=== PATIENT | female | born 1950 | race Caucasian/White ===

== ENCOUNTER → 2021-02-26 | Outpatient (CLI) | payer MEDICARE, MEDICAID ==
[~2021-02-26] MED LIST: CARB1TAB22 PO; CHLO25TA10 PO; FERR-36 PO; GABA600T7 PO; HYDR-2765 PO; LISI20TA18 PO; MULT-55 PO; OMEP20TA8 PO
[2021-02-26 08:45] LABS: BASO # 0.1 x10^3/uL (0.0-0.2); BASO % 1 % (0-3); EOS # 0.2 x10^3/uL (0.0-0.7); EOS % 4 % (0-3); HEMATOCRIT 41.9 % (36.0-47.0); HEMOGLOBIN 14.1 g/dL (12.0-15.5); LYMPH # 1.7 x10^3/uL (1.0-4.8); LYMPH % 28 % (24-48); MEAN CORPUSCULAR HEMOGLOBIN 32 pg (25-35); MEAN CORPUSCULAR HGB CONC 34 g/dL (31-37); MEAN CORPUSCULAR VOLUME 95 fL (79-100); MONO # 0.7 x10^3/uL (0.0-1.1); MONO % 11 % (0-9); NEUT # 3.2 x10^3/uL (1.8-7.7); NEUT % 56 % (31-73); PLATELET COUNT 122 x10^3/uL (140-400); RED CELL DISTRIBUTION WIDTH 11.9 % (11.5-14.5); WHITE BLOOD COUNT 5.8 x10^3/uL (4.0-11.0)
[2021-02-26 08:54] LABS: PROTHROMBIN TIME PATIENT 13.6 SEC (11.7-14.0)
[2021-02-26 08:55] LABS: ALBUMIN 3.4 g/dL (3.4-5.0); CALCIUM 8.7 mg/dL (8.5-10.1); CREATININE 1.7 mg/dL (0.6-1.0); GFR 29.6
--- NOTE | 2021-02-26 11:18 | EKG ---
[facility] [address] [place] [address] Test Date: 2021-02-26 Test Time: 11:15:32 Pat Name: CHELY QUINONES Department: Room: Gender: F Foot Tender: JMG : 1950 Requested By: YOLY FRANCO Order Number: [id number] Reading MD: Natanael Bean MD Measurements Intervals [place] Rate: 52 P: 51 ME: 202 QRS: 39 QRSD: 78 T: 46 QT: 456 QTc: 426 Interpretive Statements SINUS RHYTHM Electronically Signed On 02-28-2021 11:46:53 CDT by Natanael Bean MD
[2021-02-27 01:23] LABS: HEMOGLOBIN A1C 5.6 % (4.8-5.6)
--- NOTE | 2021-02-27 04:01 | RAD ---
XR CHEST 2V History: Reason: joint prehab patient-hx hypertension-preop eval / Spl. Instructions: / History: Comparison: None. Findings: The cardiomediastinal silhouette is normal. Pulmonary vasculature is normal. The lungs are clear. No pleural effusion or pneumothorax is seen. There is no acute bone abnormality. IMPRESSION: No acute cardiopulmonary process. Electronically signed by: Michael Baxter MD (02/27/2021 3:59 AM) [facility]
== END ==
LOC: SURGPAT 15:10
PROVIDERS: ATTEND Orthopaedic Surgery
DX: Z01.818 Encounter for other preprocedural examination (principal); M17.12 Unilateral primary osteoarthritis, left knee; I10 Essential (primary) hypertension; Z96.652 Presence of left artificial knee joint
CPT/HCPCS: 36415; 71046; 80048; 82040; 82306; 83036; 85025; 85610; 85651; 85730; 87641; 93005

== ENCOUNTER → 2021-03-15 | Outpatient (CLI) | payer MEDICARE, MEDICAID | LOC: LAB 09:46 | PROVIDERS: ATTEND Orthopaedic Surgery | DX: Z01.812 Encounter for preprocedural laboratory examination (principal); Z20.822 Contact with and (suspected) exposure to COVID-19; M17.12 Unilateral primary osteoarthritis, left knee | CPT/HCPCS: U0003; U0005 ==

== ENCOUNTER 2021-03-19 06:08 | Observation (INO) | payer MEDICARE, MEDICAID ==
--- NOTE | 2021-03-18 11:21 | PDOC1 ---
History and Physical Date of Admission Date of Admission 03/19/2021 Identification/Chief Complaint Chief Complaint Left knee osteoarthritis pain Source Source: Chart review, Patient History of Present Illness History of Present Illness Ms. Quinones is a 69-year-old female with left knee osteoarthritis pain and also pain in the right knee. Patient has pain in both knees that has progressively worsened over the last year. She describes progressive knee pain for years that has especially progressed. She was previously in physical therapy where she progressed to use of a cane, although she has more recently declined and is back to ambulating with a walker. Patient locates "grinding and excruciating pain" in the knee. She has a bed sore on her buttock that is being treated with Neosporin. Denies any known metal allergy. Denies smoking although her roommate does smoke outside. She describes painful crepitus in the left knee. She also mentions some numbness and swelling in her legs (right more than left). She uses a walker to help with ambulation due to pain and instability. She has fallen several times as a result of her antalgic/unsteady gait. She has been to physical therapy. She previously received corticosteroid injections in her knees with no relief, most recently in summer 2018. She's never received visco supplementation injections. Her knee pain keeps her from driving. Her knee pain also limits her mobility, and she has gained some weight as a result. Patient does note a history of Parkinson's.. She is a former smoker (quit in 2009). Patient lives with her sister and [id number]. She had a cholecystectomy last year that she recovered well from. Past Medical History Past Medical History Parkinsons. High blood pressure. Osteoporosis. Carpal tunnel syndrome. Cardiovascular: HTN CENTRAL NERVOUS SYSTEM: Carpal Tunnel Syndrome Endocrine: Osteoporosis Past Surgical History Past Surgical History gall bladder 2018 rectal surgery x2 2009 Past Surgical History: Cholecystectomy Social History Smoke: Quit ALCOHOL: none Current Medications Current Medications Current Medications Fentanyl Citrate (Fentanyl 2ml Vial) 25 mcg PRN Q5MIN PRN IVP MILD PAIN 1-3; Start 03/19/21 at 06:00; Stop 03/19/21 at 20:00 Fentanyl Citrate (Fentanyl 2ml Vial) 50 mcg PRN Q5MIN PRN IVP MODERATE PAIN 4- 6; Start 03/19/21 at 06:00; Stop 03/19/21 at 20:00 Morphine Sulfate (Morphine Sulfate) 1 mg PRN Q10MIN PRN IVP SEVERE PAIN 7-10; Start 03/19/21 at 06:00; Stop 03/19/21 at 20:00; Status Cancel Ringer's Solution 1,000 ml @ 30 mls/hr Q24H IV ; Start 03/19/21 at 06:00; Stop 03/19/21 at 17:59 Hydromorphone HCl (Dilaudid) 0.5 mg PRN Q10MIN PRN IVP SEVERE PAIN 7-10, 2nd CHOICE; Start 03/19/21 at 06:00; Stop 03/19/21 at 20:00 Prochlorperazine Edisylate (Compazine) 5 mg PACU PRN PRN IVP NAUSEA, MRX1; Start 03/19/21 at 06:00; Stop 03/19/21 at 20:00 Tranexamic Acid 50 ml @ 50 mls/hr 1X PERIOP ONCE INJ ; Start 03/19/21 at 06:00; Stop 03/19/21 at 06:59 Ketorolac Tromethamine 30 mg/Ropivacaine 60 ml/Epinephrine HCl 0.5 mg/Sodium Chloride 99.5 ml @ 99.5 mls/hr 1X ONCE INJ ; Start 03/19/21 at 06:00; Stop 03/19/21 at 06:59 Cefazolin Sodium/ Dextrose 50 ml @ 100 mls/hr 1X ONCE IV ; Start 03/19/21 at 06:00; Stop 03/19/21 at 06:29 Active Scripts Active Reported Hair, Skin & Nails (Multivitamin With Minerals) 1 Each Tablet 1 Each PO DAILY Omeprazole 20 Mg Tablet.dr 20 Mg PO DAILY Lisinopril 20 Mg Tablet 20 Mg PO DAILY Chlorthalidone (Chlorthalidone) 25 Mg Tablet 12.5 Mg PO DAILY Carbidopa-Levodopa 25-100 Tab (Carbidopa/Levodopa) 1 Each Tablet 1 Each PO TID Gabapentin 600 Mg Tablet 100 Mg PO DAILY Hydrocodone-Apap 7.5-325 (Hydrocodone Bit/Acetaminophen) 1 Tab Tablet 1 Tab PO PRN Q6HRS PRN Iron (Ferrous Sulfate) 325 Mg Tablet 325 Mg PO DAILY Allergies Allergies: Coded Allergies: morphine (Verified Adverse Reaction, Unknown, 03/19/21) DISORIENTATION oxycodone (Verified Adverse Reaction, Unknown, 03/19/21) DISORIENTATION ROS Review of System OPHTHALMOLOGY: Blurred vision none. Double vision admits. Change in vision none. ENT: Hearing loss admits (receiving hearing aids soon). Change in voice denies. Rhinorrhea none. CARDIOLOGY: Palpitations none. Shortness of breath denies. Chest pain denies. CONSTITUTIONAL: Fever denies. Chills denies. Weight gain denies. Weakness none. weight loss denies. Fatigue none. GASTROENTEROLOGY: Diarrhea admits. Vomiting none. Dysphagia none. UROLOGY: Voiding normally no. Hematuria none. MUSCULOSKELETAL: Chronic back or neck pain denies. Swelling of the feet, hands, ankles and /or legs denies. Joint pain admits. Tingling/numbness no. DERMATOLOGY: Rash denies. Lumps none. NEUROLOGY: Dizziness/lightheadedness admits. Double vision, temporary blindness denies. Tingling/numbness none. PSYCHOLOGY: Change in mood or personality denies. Memory loss none. ENDOCRINOLOGY: Obesity denies. Fatigue none. Weight loss none. HEMATOLOGY/LYMPH: Hepatitis denies. Enlarged lymph nodes denies. Physical Exam General: Alert, Cooperative HEENT: Atraumatic Lungs: Normal air movement Heart: RRR Abdomen: Soft Extremities: Other (The LEFT knee shows an antalgic gait using a walker. There is varus alignment. No masses. No detectable effusion. Tenderness on the joint lines. Palpable osteophytes. Range of motion is 2-110 degrees. There is crepitus with range of motion, and pain at the extremes of motion. The knee is stable to varus and valgus stress without subluxation or laxity. Muscle strength is slightly weak for the quadriceps 4/5 which may be due to pain or avoidance, and does not seem neurogenic, and the muscle tone and bulk is slightly decreased. The hamstring strength is 5/5. The skin is normal with no scars, rashes, lesions or ulcers. Light touch sensation is intact. No edema and no varicosities. Dorsalis pedis pulse is intact and capillary refill is normal.) Skin: No breakdown Neuro: Normal speech, Sensation intact Images Images Report reviewed and images independently reviewed. The left knee has severe osteoarthritis with narrowing, [id number] contact medially, sclerosis, osteophyte formation in all 3 compartments, varus malalignment and possible deformity of bone contour, Kellgren-Jose Angel grade 3 osteoarthritis. PATIENT: CHELY QUINONES ACCOUNT: [id number] : 1950 LOCATION: [facility] AGE: 70 SEX: F EXAM STATUS: REG CLI ORD. PHYSICIAN: CHAKA DASILVA Jr. REASON: LEFT KNEE PAIN PROCEDURE: KNEE STANDING BILAT AP Examination: 1. AP bilateral standing knees 2. Left knee 2 views INDICATION: Left knee pain COMPARISON: None FINDINGS: Bilateral standing AP knees show mild varus deformity to the left knee and lateral subluxation of the tibia relative to the distal femur. It shows also marked medial left knee joint space narrowing and osteophytic spurring of the lateral compartment. The right knee also shows marked surface irregularity on the medial femoral condyle and lateral tibial plateau osteophytic spurring. There is mild joint space narrowing, less profound than on the left knee. Soft tissues are unremarkable. The sunrise and lateral views of the left knee show marked patellofemoral joint space narrowing, near driz-co-puxj contact between the medial femoral condyle and the medial tibial plateau, and posterior osteophytes on the medial and lateral femoral condyles. No joint effusion. No definite loose body. Soft tissues unremarkable otherwise. IMPRESSION: Left greater than right bilateral multicompartment degenerative changes with varus deformity at the left knee Electronically signed by: Jeanette Rodriguez MD (02/01/2021 5:04 PM) [id number] VTE Prophylaxis Ordered VTE Prophylaxis Devices: Yes VTE Pharmacological Prophylaxi: Yes Assessment/Plan Assessment/Plan She has osteoarthritis of her left knee. We reviewed her previous x-rays together and discussed the natural history of the condition as well as the risks, benefits, and alternatives to treatment. Given her failure of nonoperative measures with continued severe pain and loss of function, my recommendation is surgery. Plan for left total knee arthroplasty with CORI robotic assistance. We discussed the potential risks of infection, neurovascular injury, fracture, bleeding, blood clots, malalignment, need for revision surgery, or other potential surgical or anesthetic complications. I recommended the robotic CORI instrumentation and we discussed my reasoning. We also discussed postoperative treatment and expectations including dental antibiotic prophylaxis and residual numbness over the knee. All of her questions were answered and she desires to proceed with total knee replacement. She is here today for elective left total knee arthroplasty with robotic assist. The patient was examined this morning. The knee history is unchanged. She does have a rash in the groin which appears to be tinea corporis. Justifications for Admission Other Justification YOLY FRANCO MD Mar 18, 2021 11:21
[2021-03-19] VITALS (8 sets, daily range): BP systolic 96–112; BP diastolic 58–67
[~2021-03-19] VITALS: Ht 162.6 cm; Wt 98.5 kg
[~2021-03-19 06:08] MED LIST changes: +IV RINGERS,LACTATED 1000ML 1,000 ML IV SCH; +KETOROLAC 30MG VIAL 30 MG, ROPIVacaine 0.5% PF 60 ML, EPINEPHrine 0.5 MG in IV NORMAL S... INJ ONE; +MORPHINE SULFATE 2 MG/ML VIAL. IVP PRN; +PROCHLORPERAZINE 10 MG/2 ML VIAL. IVP PRN; +TRANEXAMIC ACID in NS IVPB 50 ML INJ ONE; +fentaNYL PF VIAL 100 MCG/2 ML VIAL IVP PRN
[2021-03-19] MEDS ORDERED: ACETAMINOPHEN 500 MG TABLET PO ONE (06:45)
[2021-03-19] MEDS ORDERED: TRANEXAMIC ACID in NS IVPB 50 ML ONE ×2 (07:00→07:01)
[2021-03-19] MEDS ORDERED: VANCOMYCIN 1 GM VIAL. ONE ×2 (07:01→07:02)
[2021-03-19] MEDS ORDERED: LIDOCAINE 2% PF 5 ML VIAL. ONE (07:05)
[2021-03-19] MEDS ORDERED: ONDANSETRON PF 4 MG/2 ML VIAL. ONE (07:05)
[2021-03-19] MEDS ORDERED: DEXAMETHASONE SOD PHOS 4 MG/ML VIAL ONE (07:05)
[2021-03-19] MEDS ORDERED: fentaNYL PF VIAL 250 MCG/5 ML VIAL ONE (07:05)
[2021-03-19] MEDS ORDERED: PROPOFOL 10 MG/ML (20ML) VIAL. IV ONE (07:05)
[2021-03-19] MEDS ORDERED: TOBRAMYCIN POWDER 1.2 GM VIAL. TP ONE (07:45)
--- NOTE | 2021-03-19 10:28 | PDOC4 ---
Operative Note Operative Note Date of Procedure: March 19, 2021 Pre-Op Diagnosis: Unilateral primary osteoarthritis, left knee. M17.12 Post-Op Diagnosis: same Procedure: left total knee arthroplasty with patella resurfacing, robotic assisted, CPT 63016 Surgeon: Yoly Hunter MD Stone Lathe Operator: CAROLIN Rae Anesthesia: General EBL: 200 mL Specimens Obtained: left knee bone and soft tissue Complications: none Drains: Hemovac Tourniquet time: 68 Minutes Tourniquet Pressure: 300 mm Hg Indications for Procedure: Knee arthritis pain, affecting quality of life, unrelieved by nonoperative management Findings: Severe osteoarthritis with bone on bone contact in all three compartments Implants: Gaytan & Nephew Journey II Total Knee System, Size 4 left bicruciate stabilized Journey II BCS cobalt chrome femoral component, size 3 left Journey nonporous tibial baseplate, size 3-4 10 mm left Journey II BCS XLPE articular insert, 32 mm oval Giuliana II resurfacing patellar component Procedure in Detail: The patient was identified in the preoperative holding area, and the correct left lower extremity was marked by me. The patient was taken to the operating room where the patient was anesthetized by the Department of Anesthesia. Preoperative antibiotics were given intravenously. Tranexamic acid 1 g was given intravenously for intraoperative hemostasis. A "time-out" procedure was performed. The patient was positioned supine on the operative table with a tourniquet on the upper left thigh. A left hip bump and heel bump were attached to the operating table for later intraoperative positioning. The left lower limb was thoroughly scrubbed, then sterile Chloraprep solution was applied, and the limb was draped in sterile fashion. The operating team wore exhaust ventilated hoods with HomeRun Personal Protection Toga Zippered Peel-Away protection system. An impervious stockinet and an adhesive drape were used such that the skin was entirely covered. The limb was exsanguinated with an Esmarch bandage, and the tourniquet was inflated. A midline skin incision was made with a scalpel using the patella and tibial tubercle as landmarks. Electrocautery was used for hemostasis. My hearing aid assistant used rake retractors and a laparotomy sponge. A medial parapatellar arthrotomy incision was used with extension into the distal quadriceps tendon. The patella was retracted laterally and Hohmann retractors were now used by my hearing aid assistant. Excess synovium, the menisci, and the cruciate ligaments were resected sharply. A periarticular multimodal ropivacaine anesthetic injection was used in the suprapatellar pouch and distal quadriceps muscle. The patella was everted and exposed. The patella thickness was measured with a caliper, and then cut freehand with a saw, using caliper measurements to assess the resection. The lateral retinaculum was partially released from the lateral patella using electrocautery. Rongeurs were used to make sure there were no remaining exposed patellar osteophytes medially or laterally. The patella was sized, and then drilled for an oval three-peg patella component. The tibial tracker array for the CORI system was applied to the tibial crest four finger breadths below the tibial tubercle, using percutaneous incisions and bicortical pins. The femoral tracker array was applied outside of the original incision using two separate stab incisions using bicortical pins. Checkpoint verification pins were applied to the femur and tibia. Using the point probe, the medial and lateral malleoli were localized and the locations were stored. The center of the tibia was noted at the anterior cruciate ligament insertion and stored. The center of the femur was marked at the intersection of Whitesidess line with the transepicondylar axis. The hip center calculation was performed with range of motion of the hip. The femur neutral position was identified, and simulated weightbearing was performed with axial compression on the foot. Range of motion without stress was performed and the data collected. Range of motion with valgus stress, and range of motion with varus stress data collection was also performed. Rotational references include the Whitesidess line, and the trans-epicondylar axis. The femoral articular surface was now mapped in 3 dimensions using the point probe and digital data collected. The tibial condyle articular surfaces and cortical edges were mapped in 3 dimensions using the point probe including the medial and lateral tibial plateau. Implant planning was now performed on-screen with manipulation of the implant sizes, cut thicknesses and gaps, component rotation, component flexion/extension and component varus/valgus until satisfactory ligament balance, alignment and stability of the knee was expected throughout the range of motion. No additional releases were required. My hearing aid assistant held a Hohmann retractor, a medial Z-retractor, and an [place] retractor to protect the medial and lateral collateral ligaments, the patellar tendon, the skin and the other soft tissues. The point probe was used to confirm the location of the checkpoint verification pins. The distal femoral surface was now prepared using CORI handpiece for bone removal to the previously planned distal femoral resection. The crosshairs at the pin locations were mar ked by using a mallet and the point probe for definitive location. A 5-in-1 Journey II cutting guide was then applied and the position was checked with the virtual latoya wing from the CORI to ensure proper placement as the pins were applied. The posterior, anterior, and all chamfer cuts were made with the oscillating saw. Excess bone was removed with an osteotome and rongeurs. The tibial cutting guide was applied, positioned using the CORI virtual latoya wing, and secured to the upper tibia using three pins at the previously planned location. The virtual latoya wing was used to confirm the resection depth, slope and coronal alignment. The upper tibia was cut made with an oscillating saw. My hearing aid assistant held Hohmann retractors and a posterior cruciate ligament retractor to protect the medial and lateral collateral ligaments, the patellar tendon, the skin, the peroneal nerve and the other soft tissues. The upper tibia was sized with a trial baseplate. The posterior compartment was cleared of osteophytes and loose bodies. The periarticular anesthetic injection was used in the posterior compartment. The box cut for a posterior stabilized component was made. A preliminary reduction was performed with a trial femur, trial tibial baseplate and trial polyethylene. The CORI system was used to confirm range of motion, and postoperative stressed gap assessment. The stability was assessed using different thicknesses of tibial articular surface to find satisfactory stability and good range of motion. The rotation of the tibial component was marked on the upper tibia. Final trial reduction was now performed verifying patella tracking and tibiofemoral stability and alignment. The bone pins and tracker arrays were removed, and the checkpoint verification pins were removed. The tibia preparation was completed with a drill, saw, and fin punch at the previously noted rotation. The final implants were verified and opened. Outer gloves were changed by the operating team. Betadine lavage was used. The bone cuts were irrigated with saline using the reportbrain InterPulse device and then dried with suction and laparotomy sponges. Two packages of Gaytan + Nephew Rally HV bone cement were mixed in powdered form with Vancomycin 1gm and Tobramycin 1.2 gm, and then vacuum-mixed with the monomer, and placed into a cement gun. The cut surfaces of the bone were thoroughly dried with suction and with laparotomy sponges for cement interdigitation. The final components were cemented into place. The knee was kept at full extension while the cement hardened, and excess cement was removed. Tranexamic acid 1 g was redosed intravenously for additional intraoperative hemostasis. The tourniquet was released, and electrocautery was used for hemostasis. A final periarticular anesthetic injection was used for pain relief. The bone pin sites on the tibial crest were closed with #3-0 Nylon sutures. A final check of [id number] and stability was made, and the polyethylene implant final size was chosen. The polyethylene implant was secured to the t ibial baseplate, and the knee was reduced a final time and range of motion and stability was confirmed. Thorough irrigation was used. A 10 Fr Hemovac was used. Topical Vancomycin 1 gm was used during the closure. The arthrotomy was closed with interrupted [id number] #1 Vicryl suture. The subcutaneous tissues were approximated initially with #2-0 Vicryl inverted interrupted sutures by my hearing aid assistant. Next the subcuticular layer was approximated in a running fashion with #3-0 STRATAFIX suture by my hearing aid assistant. The skin incision was then covered and reinforced by my hearing aid assistant with Acticoat, followed by a AMIRA single use negative pressure wound therapy dressing Soft roll and an Shine wrap were applied. Needle and sponge counts were correct. There were no apparent complications. The patient returned to the recovery room in stable condition. YOLY HUNTER MD Mar 19, 2021 10:28
[2021-03-19] MEDS ORDERED: DEXTROSE 50% 25 GM / 50ML DISP.SYRIN. IV PRN (10:30)
[2021-03-19] MEDS ORDERED: ZOLPIDEM 5 MG TABLET. PO PRN (10:30)
[2021-03-19] MEDS ORDERED: PROCHLORPERAZINE 5 MG TABLET. PO PRN (10:30)
[2021-03-19] MEDS ORDERED: 0.9 % SODIUM CHLORIDE 10 ML DISP.SYRIN. IV PRN (10:30)
[2021-03-19] MEDS ORDERED: CALCIUM CARBONATE 500 MG TAB.CHEW PO PRN (10:30)
[2021-03-19] MEDS ORDERED: fentaNYL PF VIAL 100 MCG/2 ML VIAL IVP PRN (10:30)
[2021-03-19] MEDS ORDERED: METOCLOPRAMIDE HCL 10 MG/2 ML VIAL. IVP PRN (10:30)
[2021-03-19] MEDS ORDERED: diphenhydrAMINE 50 MG/ML VIAL IVP PRN (10:30)
[2021-03-19] MEDS ORDERED: SEVOFLURANE > 120 MINUTES. IH ONE (10:31)
[2021-03-19] MEDS ORDERED: HYDROmorphone 2 MG/ML VIAL ONE (10:37)
[2021-03-19] MEDS: HYDROmorphone 2 MG/ML VIAL IVP PRN ×3 (10:40→11:21)
--- NOTE | 2021-03-19 10:52 | RAD ---
EXAM: Left knee, 2 views. HISTORY: Arthroplasty. COMPARISON: None. FINDINGS: 2 views of the left knee are obtained. There is a left knee arthroplasty in expected positi on. There are track krishnan within the distal femur and proximal tibia due to prior instrumentation. Th ere is soft tissue gas, joint fluid and a drain due to recent surgery. IMPRESSION: Right knee arthroplasty in expected position. Electronically signed by: Mia Sears MD (03/19/2021 10:49 AM) [id number]
[2021-03-19] MEDS: LISINOPRIL 20 MG TABLET PO SCH (11:00)
[2021-03-19] MEDS: CHLORTHALIDONE 25 MG TABLET. PO SCH (11:00)
[2021-03-19] MEDS: ONDANSETRON PF 4 MG/2 ML VIAL. IVP SCH ×2 (12:00→15:08)
[2021-03-19] MEDS: ONDANSETRON ODT 4 MG TAB.RAPDIS. PO SCH ×2 (12:00→15:08)
[2021-03-19] MEDS: CARBIDOPA/LEVODOPA 25/100MG TABLET PO SCH ×2 (14:55→20:27)
[2021-03-19] MEDS: PANTOPRAZOLE 40 MG TABLET.DR. PO SCH (14:55)
[2021-03-19] MEDS: MULTIVITAMIN with MINERAL TABLET. PO SCH (14:55)
[2021-03-19] MEDS: TERBINAFINE 250 MG TABLET. PO SCH (14:57)
[2021-03-19] MEDS: IV NORMAL SALINE 1000ML BAG 1,000 ML IV SCH (14:59)
--- NOTE | 2021-03-19 15:18 | NUR ---
received from recovery. she is alert x4. no family at bedside. iv infusing in left hand.without problems. assisted to bedside commode with max assist x2 . hx of Parkinson's disease. sister to bring in her hearing aide , denture and glasses. sister took home her wallet;pluses and all her cards. bilateral strength in legs is equal and slightly weak. uses walker at homes. has problems with incontinence and wears depends. her rectum is prolapsed. Addendum: 03/19/21 at 1523 by LAZARO OSEI RN sister states that she has a rash in her left groin area and is putting powder on it
--- NOTE | 2021-03-19 16:43 | NUR ---
Hemovac accidently pulled out--there was 9 perforations at the end of tubing.
--- NOTE | 2021-03-19 16:58 | PDOC1 ---
History and Physical Date of Service: DOS: DATE: 03/19/21 TIME: 16:52 Chief Complaint: Chief Complain: Medical consult History of Present Illness: HPI: Patient is a 70-year-old female with past medical history of Parkinson's disease, hypertension, GERD status post left TKA with Dr. Hunter and we are consulted for medical management. Patient currently has no complaints or any acute exacerbations of her chronic conditions. She is currently working with [facility] physical therapist and she was working on standing up bedside next a walker. Patient currently in does not complaining of any pain. Denies fevers, chest pain, abdominal pain, diarrhea, dysuria or constipation. Past Medical/Surgical History: PMH/PSH: Parkinson's disease, hypertension, GERD, osteoporosis, carpal tunnel syndrome Cholecystectomy 2018 Rectal surgery x2 in 2009 Allergies: Allergies: Coded Allergies: morphine (Verified Adverse Reaction, Unknown, 03/19/21) DISORIENTATION oxycodone (Verified Adverse Reaction, Unknown, 03/19/21) DISORIENTATION Family History: Family History: Reviewed with no relevant findings Social History: Social History: Quit smoking, denies alcohol or drug abuse Current Medications: Current Medications Current Medications Fentanyl Citrate (Fentanyl 2ml Vial) 25 mcg PRN Q5MIN PRN IVP MILD PAIN 1-3; Start 03/19/21 at 06:00; Stop 03/19/21 at 20:00 Fentanyl Citrate (Fentanyl 2ml Vial) 50 mcg PRN Q5MIN PRN IVP MODERATE PAIN 4- 6; Start 03/19/21 at 06:00; Stop 03/19/21 at 20:00 Morphine Sulfate (Morphine Sulfate) 1 mg PRN Q10MIN PRN IVP SEVERE PAIN 7-10; Start 03/19/21 at 06:00; Stop 03/19/21 at 20:00; Status Cancel Ringer's Solution 1,000 ml @ 30 mls/hr Q24H IV Last administered on 03/19/21at 07:04; Start 03/19/21 at 06:00; Stop 03/19/21 at 17:59 Hydromorphone HCl (Dilaudid) 0.5 mg PRN Q10MIN PRN IVP SEVERE PAIN 7-10, 2nd CHOICE Last administered on 03/19/21at 11:21; Start 03/19/21 at 06:00; Stop 03/19/21 at 20:00 Prochlorperazine Edisylate (Compazine) 5 mg PACU PRN PRN IVP NAUSEA, MRX1; Start 03/19/21 at 06:00; Stop 03/19/21 at 20:00 Tranexamic Acid 50 ml @ 50 mls/hr 1X PERIOP ONCE INJ Last administered on 03/19/21at 08:27; Start 03/19/21 at 06:00; Stop 03/19/21 at 06:59; Status DC Ketorolac Tromethamine 30 mg/Ropivacaine 60 ml/Epinephrine HCl 0.5 mg/Sodium Chloride 99.5 ml @ 99.5 mls/hr 1X ONCE INJ Last administered on 03/19/21at 08:47; Start 03/19/21 at 06:00; Stop 03/19/21 at 06:59; Status DC Cefazolin Sodium/ Dextrose 50 ml @ 100 mls/hr 1X ONCE IV Last administered on 03/19/21at 08:17; Start 03/19/21 at 06:00; Stop 03/19/21 at 06:29; Status DC Acetaminophen (Tylenol) 1,000 mg 1X ONCE PO Last administered on 03/19/21at 07:04; Start 03/19/21 at 06:45; Stop 03/19/21 at 06:46; Status DC Tranexamic Acid 50 ml @ As Directed STK-MED ONCE .ROUTE ; Start 03/19/21 at 07:00; Stop 03/19/21 at 07:01; Status DC Vancomycin HCl (Vancomycin) 1 gm STK-MED ONCE .ROUTE Last administered on 03/19/21at 09:36; Start 03/19/21 at 07:01; Stop 03/19/21 at 07:01; Status DC Tranexamic Acid 50 ml @ As Directed STK-MED ONCE .ROUTE ; Start 03/19/21 at 07:01; Stop 03/19/21 at 07:02; Status DC Vancomycin HCl (Vancomycin) 1 gm STK-MED ONCE .ROUTE Last administered on 03/19/21at 09:52; Start 03/19/21 at 07:02; Stop 03/19/21 at 07:02; Status DC Fentanyl Citrate (Fentanyl 5ml Vial) 250 mcg STK-MED ONCE .ROUTE ; Start 03/19/21 at 07:05; Stop 03/19/21 at 07:05; Status DC Propofol (Diprivan) 200 mg STK-MED ONCE IV ; Start 03/19/21 at 07:05; Stop 03/19/21 at 07:05; Status DC Dexamethasone Sodium Phosphate (Decadron) 4 mg STK-MED ONCE .ROUTE ; Start 03/19/21 at 07:05; Stop 03/19/21 at 07:05; Status DC Lidocaine HCl (Lidocaine Pf 2% Vial) 5 ml STK-MED ONCE .ROUTE ; Start 03/19/21 at 07:05; Stop 03/19/21 at 07:05; Status DC Ondansetron HCl (Zofran) 4 mg STK-MED ONCE .ROUTE ; Start 03/19/21 at 07:05; Stop 03/19/21 at 07:05; Status DC Tobramycin Sulfate (Tobramycin Powder) 1.2 gm 1X ONCE TP Last administered on 03/19/21at 09:36; Start 03/19/21 at 07:45; Stop 03/19/21 at 07:46; Status DC Sevoflurane (Ultane) 90 ml STK-MED ONCE IH ; Start 03/19/21 at 10:31; Stop 03/19/21 at 10:32; Status DC Fentanyl Citrate (Fentanyl 2ml Vial) 25 mcg PRN Q1HR PRN IVP PAIN, 2nd CHOICE Last administered on 03/19/21at 15:01; Start 03/19/21 at 10:30 Diphenhydramine HCl (Benadryl) 25 mg PRN Q6HRS PRN IVP ITCHING; Start 03/19/21 at 10:30 Multivitamins (Thera M Plus) 1 tab DAILY PO Last administered on 03/19/21at 14:55; Start 03/19/21 at 11:00 Senna/Docusate Sodium (Senna Plus) 1 tab DAILY PO ; Start 03/20/21 at 09:00 Sodium Chloride 1,000 ml @ 40 mls/hr Q24H IV Last administered on 03/19/21at 14:59; Start 03/19/21 at 10:30 Prochlorperazine Maleate (Compazine) 10 mg PRN Q4HRS PRN PO Nausea/vomiting, 2nd choice; Start 03/19/21 at 10:30 Metoclopramide HCl (Reglan Vial) 10 mg PRN Q4HRS PRN IVP NAUSEA/VOMITING, 3rd CHOICE; Start 03/19/21 at 10:30 Magnesium Hydroxide (Milk Of Magnesia) 2,400 mg 1X PRN PRN PO CONSTIPATION; Start 03/20/21 at 06:00; Stop 03/21/21 at 05:59 Bisacodyl (Dulcolax Supp) 10 mg 1X PRN PRN MA CONSTIPATION; Start 03/20/21 at 16:00; Stop 03/21/21 at 15:59 Zolpidem Tartrate (Ambien) 5 mg PRN QHS PRN PO INSOMNIA, MAY REPEAT IN 1HR; Start 03/19/21 at 10:30 Calcium Carbonate/ Glycine (Tums) 500 mg PRN QID PRN PO INDIGESTION; Start 03/19/21 at 10:30 Sodium Chloride (Normal Saline Flush) 10 ml QSHIFT PRN IV AFTER MEDS AND BLOOD DRAWS; Start 03/19/21 at 10:30 Ondansetron HCl (Zofran) 4 mg Q6HRS IVP Last administered on 03/19/21at 15:08; Start 03/19/21 at 12:00; Stop 03/20/21 at 06:01 Ondansetron HCl (Zofran Odt) 4 mg Q6HRS PO ; Start 03/19/21 at 12:00; Stop 03/20/21 at 06:01 Ondansetron HCl (Zofran) 4 mg PRN Q6HRS PRN IVP Nausea/vomiting, 1st choice; Start 03/20/21 at 12:00 Ondansetron HCl (Zofran Odt) 4 mg PRN Q6HRS PRN PO Nausea/vomiting, 1st choice; Start 03/20/21 at 12:00 Dextrose (Dextrose 50%-Water Syringe) 12.5 gm PRN Q15MIN PRN IV SEE COMMENTS; Start 03/19/21 at 10:30 Cefazolin Sodium/ Dextrose 50 ml @ 100 mls/hr Q6H IV Last administered on 03/19/21at 14:59; Start 03/19/21 at 16:00; Stop 03/20/21 at 04:29 Acetaminophen/ Hydrocodone Bitart (Lortab 10/325) 1 tab PRN Q4HRS PRN PO MODERATE PAIN; Start 03/19/21 at 10:30 Carbidopa/Levodopa (Sinemet 25/100) 1 tab TID PO Last administered on 03/19/21at 14:55; Start 03/19/21 at 14:00 Chlorthalidone (Thalitone) 12.5 mg DAILY PO ; Start 03/19/21 at 11:00 Lisinopril (Prinivil) 20 mg DAILY PO ; Start 03/19/21 at 11:00 Gabapentin (Neurontin) 100 mg DAILY PO ; Start 03/20/21 at 09:00 Pantoprazole Sodium (Protonix) 40 mg DAILYAC PO Last administered on 03/19/21at 14:55; Start 03/19/21 at 11:30 Tolnaftate (Tinactin) 1 maryana BID TP ; Start 03/19/21 at 21:00 Terbinafine HCl (LamISIL) 250 mg DAILY PO Last administered on 03/19/21at 14:57; Start 03/19/21 at 11:00 Hydromorphone HCl (Dilaudid) 2 mg STK-MED ONCE .ROUTE ; Start 03/19/21 at 10:37; Stop 03/19/21 at 10:37; Status DC Acetaminophen/ Hydrocodone Bitart (Lortab 10/325) 2 tab PRN Q4HRS PRN PO SEVERE PAIN; Start 03/19/21 at 11:00 Active Scripts Active Reported Hair, Skin & Nails (Multivitamin With Minerals) 1 Each Tablet 1 Each PO DAILY Omeprazole 20 Mg Tablet.dr 20 Mg PO DAILY Lisinopril 20 Mg Tablet 20 Mg PO DAILY Chlorthalidone (Chlorthalidone) 25 Mg Tablet 12.5 Mg PO DAILY Carbidopa-Levodopa 25-100 Tab (Carbidopa/Levodopa) 1 Each Tablet 1 Each PO TID Gabapentin 600 Mg Tablet 100 Mg PO DAILY Hydrocodone-Apap 7.5-325 (Hydrocodone Bit/Acetaminophen) 1 Tab Tablet 1 Tab PO PRN Q6HRS PRN Iron (Ferrous Sulfate) 325 Mg Tablet 325 Mg PO DAILY ROS: Review of Systems Review of System REVIEW OF SYSTEMS: GENERAL: Denies weakness SKIN: No bruising, hair changes or rashes. EYES: No blurred, double or loss of vision. NOSE AND THROAT: No history of nosebleeds, hoarseness or sore throat. HEART: No history of palpitations, chest pain or shortness of breath on exertion. LUNGS: Denies cough, hemoptysis, wheezing or shortness of breath. GASTROINTESTINAL: Denies changes in appetite, nausea, vomiting, diarrhea or constipation. GENITOURINARY: No history of frequency, urgency, hesitancy or nocturia. NEUROLOGIC: Denies history of numbness, tingling, or tremor. PSYCHIATRIC: No history of panic, anxiety or depression. ENDOCRINE: No history of heat or cold intolerance, polyuria or polydipsia. EXTREMITIES: Denies joint pain, pain on walking or stiffness. Physical Exam: Vital Signs: Vital Signs Date Time Temp Pulse Resp B/P (MAP) Pulse Ox O2 Delivery O2 Flow Rate FiO2 03/19/21 15:00 97.3 69 20 108/67 (81) 95 Room Air 97.3 03/19/21 11:45 2.0 Physcial Exam: GEN: No apparent distress. Alert and oriented HEENT: Normal cephalic, atraumatic, external auditory canals are patent EYES: Extraocular muscles are intact, pupil are equally round and reactive to light and accommodation MUSCULOSKELETAL: Well developed , well nourished, good range of motion ENDOCRINE: No thyromegaly was palpated LYMPHATICS: No cervical chain or axillary nodes were noted HEMATOPOIETIC: No bruising NECK: Supple, no JVD, no thyromegaly was noted LUNGS: Clear to auscultation in all lung garcia without rhonchi or wheezing HEART: RRR, S!, S2 present. Peripheral pulses intact, no obvious murmurs noted ABDOMEN: Soft, nontender. Positive bowel sounds, no organomegaly, normal bowel sounds EXTREMITIES: Without clubbing, cyanosis, or edema. Pedal pulses intact. Negative Homans sign NEUROLOGIC: Normal speech and tone. A&O x 3, moves all extremities, no obvious focal deficits PSYCHIATRIC: Normal affect, normal mood. Stable SKIN: No ulcerations or rashes, good skin turgor, no jaundice VASCULAR: Good capillary refill, neurovascular bundle appears to be intact Images: Images PROCEDURE: KNEE LEFT 2V IMPRESSION: Right knee arthroplasty in expected position. Assessment/Plan Assessment/Plan Osteoporosis status post left knee TKA Okay to resume home antihypertensive medications Resume home Parkinson's medications Continue aggressive PT OT modalities P.o. pain control for postoperative course and IV pain control for breakthrough pain Defer to Ortho for DVT prophylaxis Protonix GI prophylaxis ADA diet Full code Discussed with RN and SW Disposition PT OT, anticipate discharge in the next 24 hours Surrogate decision maker is Donna Guthrie Goals of Care: Advance Care Planning: Total time spent [id number] with patient greater than 16 minutes in discussion with goals of care, comfort care, end-of-life care, pain management, code status Justifications for Admission Other Justification JERONIMO GUZMAN MD Mar 19, 2021 16:58
--- NOTE | 2021-03-19 17:42 | NUR ---
ambulated to bathroom with assist of 1. using roller walker; tolerated well.
[2021-03-19] MEDS: POLYETHYLENE GLYCOL 3350 17 GM PACKET. PO SCH (20:23)
[2021-03-19] MEDS: HYDROcodone/APAP 10/325 1 TAB TABLET PO PRN (20:26)
[2021-03-19] MEDS ORDERED: TOLNAFTATE 1% TOPICAL SPRAY POWDER 133GM CAN. TP SCH (21:00)
[2021-03-20] MEDS: HYDROcodone/APAP 10/325 1 TAB TABLET PO PRN ×5 (00:38→21:16)
[2021-03-20 02:56] VITALS: BP 93/52
[2021-03-20] MEDS: ONDANSETRON PF 4 MG/2 ML VIAL. IVP SCH ×2 (05:44)
[2021-03-20] MEDS: ONDANSETRON ODT 4 MG TAB.RAPDIS. PO SCH ×2 (05:44)
--- NOTE | 2021-03-20 05:45 | NUR ---
Slept well, po Lortab managing pain.
[2021-03-20] MEDS ORDERED: MAGNESIUM HYDROXIDE 2,400 MG/30 ML ORAL.SUSP. PO PRN (06:00)
[2021-03-20 06:11] VITALS: BP 100/55
[2021-03-20] MEDS: MULTIVITAMIN with MINERAL TABLET. PO SCH (07:36)
[2021-03-20] MEDS: GABAPENTIN 100 MG CAPSULE. PO SCH (07:37)
[2021-03-20] MEDS: TERBINAFINE 250 MG TABLET. PO SCH (07:37)
[2021-03-20] MEDS: CARBIDOPA/LEVODOPA 25/100MG TABLET PO SCH ×3 (07:37→20:48)
[2021-03-20] MEDS: SENNOSIDES/DOCUSATE 8.6/50MG TABLET. PO SCH (07:37)
[2021-03-20] MEDS: PANTOPRAZOLE 40 MG TABLET.DR. PO SCH (07:37)
[2021-03-20 07:45] VITALS: BP 94/59
--- NOTE | 2021-03-20 08:12 | PDOC ---
PROGRESS NOTES Date of Service: DATE: 03/20/21 TIME: 08:12 Chief Complaint Chief Complaint Images: Images PROCEDURE: KNEE LEFT 2V IMPRESSION: Right knee arthroplasty in expected position. Assessment/Plan Assessment/Plan Osteoporosis status post left knee TKA Okay to resume home antihypertensive medications Resume home Parkinson's medications Continue aggressive PT OT modalities P.o. pain control for postoperative course and IV pain control for breakthrough pain Defer to Ortho for DVT prophylaxis Protonix GI prophylaxis ADA diet Full code Discussed with RN and SW Disposition PT OT, anticipate discharge in the next 24 hours Surrogate decision maker is Donna Guthrie Goals of Care: Advance Care Planning: Total time spent [id number] with patient greater than 16 minutes in discussion with goals of care, comfort care, end-of-life care, pain management, code status D/W RN AND OT 03-20 Justifications for Admission Justifications for Admission Other Justification History of Present Illness History of Present Illness Chief Complaint: Chief Complain: Medical consult History of Present Illness: HPI: Patient is a 70-year-old female with past medical history of Parkinson's disease, hypertension, GERD status post left TKA with Dr. Hunter and we are consulted for medical management. Patient currently has no complaints or any acute exacerbations of her chronic conditions. She is currently working with Андрей physical therapist and she was working on standing up bedside next a walker. Patient currently in does not complaining of any pain. Denies fevers, chest pain, abdominal pain, diarrhea, dysuria or constipation. Past Medical/Surgical History: PMH/PSH: Parkinson's disease, hypertension, GERD, osteoporosis, carpal tunnel syndrome Cholecystectomy 2018 Rectal surgery x2 in 2009 Allergies: Allergies: Coded Allergies: morphine (Verified Adverse Reaction, Unknown, 03/19/21) DISORIENTATION oxycodone (Verified Adverse Reaction, Unknown, 03/19/21) DISORIENTATION Family History: Family History: Reviewed with no relevant findings Social History: Social History: Quit smoking, denies alcohol or drug abuse Current Medications: Current Medications Current Medications Fentanyl Citrate (Fentanyl 2ml Vial) 25 mcg PRN Q5MIN PRN IVP MILD PAIN 1-3; Start 03/19/21 at 06:00; Stop 03/19/21 at 20:00 Fentanyl Citrate (Fentanyl 2ml Vial) 50 mcg PRN Q5MIN PRN IVP MODERATE PAIN 4- 6; Start 03/19/21 at 06:00; Stop 03/19/21 at 20:00 Morphine Sulfate (Morphine Sulfate) 1 mg PRN Q10MIN PRN IVP SEVERE PAIN 7-10; Start 03/19/21 at 06:00; Stop 03/19/21 at 20:00; Status Cancel Ringer's Solution 1,000 ml @ 30 mls/hr Q24H IV Last administered on 03/19/21at 07:04; Start 03/19/21 at 06:00; Stop 03/19/21 at 17:59 Hydromorphone HCl (Dilaudid) 0.5 mg PRN Q10MIN PRN IVP SEVERE PAIN 7-10, 2nd CHOICE Last administered on 03/19/21at 11:21; Start 03/19/21 at 06:00; Stop 03/19/21 at 20:00 Prochlorperazine Edisylate (Compazine) 5 mg PACU PRN PRN IVP NAUSEA, MRX1; Start 03/19/21 at 06:00; Stop 03/19/21 at 20:00 Tranexamic Acid 50 ml @ 50 mls/hr 1X PERIOP ONCE INJ Last administered on 03/19/21at 08:27; Start 03/19/21 at 06:00; Stop 03/19/21 at 06:59; Status DC Ketorolac Tromethamine 30 mg/Ropivacaine 60 ml/Epinephrine HCl 0.5 mg/Sodium Chloride 99.5 ml @ 99.5 mls/hr 1X ONCE INJ Last administered on 03/19/21at 08:47; Start 03/19/21 at 06:00; Stop 03/19/21 at 06:59; Status DC Cefazolin Sodium/ Dextrose 50 ml @ 100 mls/hr 1X ONCE IV Last administered on 03/19/21at 08:17; Start 03/19/21 at 06:00; Stop 03/19/21 at 06:29; Status DC Acetaminophen (Tylenol) 1,000 mg 1X ONCE PO Last administered on 03/19/21at 07:04; Start 03/19/21 at 06:45; Stop 03/19/21 at 06:46; Status DC Tranexamic Acid 50 ml @ As Directed STK-MED ONCE .ROUTE ; Start 03/19/21 at 07:00; Stop 03/19/21 at 07:01; Status DC Vancomycin HCl (Vancomycin) 1 gm STK-MED ONCE .ROUTE Last administered on 03/19/21at 09:36; Start 03/19/21 at 07:01; Stop 03/19/21 at 07:01; Status DC Tranexamic Acid 50 ml @ As Directed STK-MED ONCE .ROUTE ; Start 03/19/21 at 07:01; Stop 03/19/21 at 07:02; Status DC Vancomycin HCl (Vancomycin) 1 gm STK-MED ONCE .ROUTE Last administered on 03/19/21at 09:52; Start 03/19/21 at 07:02; Stop 03/19/21 at 07:02; Status DC Fentanyl Citrate (Fentanyl 5ml Vial) 250 mcg STK-MED ONCE .ROUTE ; Start 03/19/21 at 07:05; Stop 03/19/21 at 07:05; Status DC Propofol (Diprivan) 200 mg STK-MED ONCE IV ; Start 03/19/21 at 07:05; Stop 03/19/21 at 07:05; Status DC Dexamethasone Sodium Phosphate (Decadron) 4 mg STK-MED ONCE .ROUTE ; Start 03/19/21 at 07:05; Stop 03/19/21 at 07:05; Status DC Lidocaine HCl (Lidocaine Pf 2% Vial) 5 ml STK-MED ONCE .ROUTE ; Start 03/19/21 at 07:05; Stop 03/19/21 at 07:05; Status DC Ondansetron HCl (Zofran) 4 mg STK-MED ONCE .ROUTE ; Start 03/19/21 at 07:05; Stop 03/19/21 at 07:05; Status DC Tobramycin Sulfate (Tobramycin Powder) 1.2 gm 1X ONCE TP Last administered on 03/19/21at 09:36; Start 03/19/21 at 07:45; Stop 03/19/21 at 07:46; Status DC Sevoflurane (Ultane) 90 ml STK-MED ONCE IH ; Start 03/19/21 at 10:31; Stop 03/19/21 at 10:32; Status DC Fentanyl Citrate (Fentanyl 2ml Vial) 25 mcg PRN Q1HR PRN IVP PAIN, 2nd CHOICE Last administered on 03/19/21at 15:01; Start 03/19/21 at 10:30 Diphenhydramine HCl (Benadryl) 25 mg PRN Q6HRS PRN IVP ITCHING; Start 03/19/21 at 10:30 Multivitamins (Thera M Plus) 1 tab DAILY PO Last administered on 03/19/21at 14:55; Start 03/19/21 at 11:00 Senna/Docusate Sodium (Senna Plus) 1 tab DAILY PO ; Start 03/20/21 at 09:00 Sodium Chloride 1,000 ml @ 40 mls/hr Q24H IV Last administered on 03/19/21at 14:59; Start 03/19/21 at 10:30 Prochlorperazine Maleate (Compazine) 10 mg PRN Q4HRS PRN PO Nausea/vomiting, 2nd choice; Start 03/19/21 at 10:30 Metoclopramide HCl (Reglan Vial) 10 mg PRN Q4HRS PRN IVP NAUSEA/VOMITING, 3rd CHOICE; Start 03/19/21 at 10:30 Magnesium Hydroxide (Milk Of Magnesia) 2,400 mg 1X PRN PRN PO CONSTIPATION; Start 03/20/21 at 06:00; Stop 03/21/21 at 05:59 Bisacodyl (Dulcolax Supp) 10 mg 1X PRN PRN MI CONSTIPATION; Start 03/20/21 at 16:00; Stop 03/21/21 at 15:59 Zolpidem Tartrate (Ambien) 5 mg PRN QHS PRN PO INSOMNIA, MAY REPEAT IN 1HR; Start 03/19/21 at 10:30 Calcium Carbonate/ Glycine (Tums) 500 mg PRN QID PRN PO INDIGESTION; Start 03/19/21 at 10:30 Sodium Chloride (Normal Saline Flush) 10 ml QSHIFT PRN IV AFTER MEDS AND BLOOD DRAWS; Start 03/19/21 at 10:30 Ondansetron HCl (Zofran) 4 mg Q6HRS IVP Last administered on 03/19/21at 15:08; Start 03/19/21 at 12:00; Stop 03/20/21 at 06:01 Ondansetron HCl (Zofran Odt) 4 mg Q6HRS PO ; Start 03/19/21 at 12:00; Stop 03/20/21 at 06:01 Ondansetron HCl (Zofran) 4 mg PRN Q6HRS PRN IVP Nausea/vomiting, 1st choice; Start 03/20/21 at 12:00 Ondansetron HCl (Zofran Odt) 4 mg PRN Q6HRS PRN PO Nausea/vomiting, 1st choice; Start 03/20/21 at 12:00 Dextrose (Dextrose 50%-Water Syringe) 12.5 gm PRN Q15MIN PRN IV SEE COMMENTS; Start 03/19/21 at 10:30 Cefazolin Sodium/ Dextrose 50 ml @ 100 mls/hr Q6H IV Last administered on 03/19/21at 14:59; Start 03/19/21 at 16:00; Stop 03/20/21 at 04:29 Acetaminophen/ Hydrocodone Bitart (Lortab 10/325) 1 tab PRN Q4HRS PRN PO MODERATE PAIN; Start 03/19/21 at 10:30 Carbidopa/Levodopa (Sinemet 25/100) 1 tab TID PO Last administered on 03/19/21at 14:55; Start 03/19/21 at 14:00 Chlorthalidone (Thalitone) 12.5 mg DAILY PO ; Start 03/19/21 at 11:00 Lisinopril (Prinivil) 20 mg DAILY PO ; Start 03/19/21 at 11:00 Gabapentin (Neurontin) 100 mg DAILY PO ; Start 03/20/21 at 09:00 Pantoprazole Sodium (Protonix) 40 mg DAILYAC PO Last administered on 03/19/21at 14:55; Start 03/19/21 at 11:30 Tolnaftate (Tinactin) 1 maryana BID TP ; Start 03/19/21 at 21:00 Terbinafine HCl (LamISIL) 250 mg DAILY PO Last administered on 03/19/21at 14:57; Start 03/19/21 at 11:00 Hydromorphone HCl (Dilaudid) 2 mg STK-MED ONCE .ROUTE ; Start 03/19/21 at 10:37; Stop 03/19/21 at 10:37; Status DC Acetaminophen/ Hydrocodone Bitart (Lortab 10/325) 2 tab PRN Q4HRS PRN PO SEVERE PAIN; Start 03/19/21 at 11:00 Active Scripts Active Reported Hair, Skin & Nails (Multivitamin With Minerals) 1 Each Tablet 1 Each PO DAILY Omeprazole 20 Mg Tablet.dr 20 Mg PO DAILY Lisinopril 20 Mg Tablet 20 Mg PO DAILY Chlorthalidone (Chlorthalidone) 25 Mg Tablet 12.5 Mg PO DAILY Carbidopa-Levodopa 25-100 Tab (Carbidopa/Levodopa) 1 Each Tablet 1 Each PO TID Gabapentin 600 Mg Tablet 100 Mg PO DAILY Hydrocodone-Apap 7.5-325 (Hydrocodone Bit/Acetaminophen) 1 Tab Tablet 1 Tab PO PRN Q6HRS PRN Iron (Ferrous Sulfate) 325 Mg Tablet 325 Mg PO DAILY ROS: Review of Systems Review of System REVIEW OF SYSTEMS: GENERAL: Denies weakness SKIN: No bruising, hair changes or rashes. EYES: No blurred, double or loss of vision. NOSE AND THROAT: No history of nosebleeds, hoarseness or sore throat. HEART: No history of palpitations, chest pain or shortness of breath on exertion. LUNGS: Denies cough, hemoptysis, wheezing or shortness of breath. GASTROINTESTINAL: Denies changes in appetite, nausea, vomiting, diarrhea or constipation. GENITOURINARY: No history of frequency, urgency, hesitancy or nocturia. NEUROLOGIC: Denies history of numbness, tingling, or tremor. PSYCHIATRIC: No history of panic, anxiety or depression. ENDOCRINE: No history of heat or cold intolerance, polyuria or polydipsia. EXTREMITIES: Denies joint pain, pain on walking or stiffness. Vitals Vitals Vital Signs Date Time Temp Pulse Resp B/P (MAP) Pulse Ox O2 Delivery O2 Flow Rate FiO2 03/20/21 07:37 95 Room Air 03/20/21 06:11 98.0 65 18 100/55 (70) 98.0 03/19/21 11:45 2.0 Physical Exam Physical Exam Physcial Exam: GEN: No apparent distress. Alert and oriented HEENT: Normal cephalic, atraumatic, external auditory canals are patent EYES: Extraocular muscles are intact, pupil are equally round and reactive to light and accommodation MUSCULOSKELETAL: Well developed , well nourished, good range of motion ENDOCRINE: No thyromegaly was palpated LYMPHATICS: No cervical chain or axillary nodes were noted HEMATOPOIETIC: No bruising NECK: Supple, no JVD, no thyromegaly was noted LUNGS: Clear to auscultation in all lung garcia without rhonchi or wheezing HEART: RRR, S!, S2 present. Peripheral pulses intact, no obvious murmurs noted ABDOMEN: Soft, nontender. Positive bowel sounds, no organomegaly, normal bowel sounds EXTREMITIES: Without clubbing, cyanosis, or edema. Pedal pulses intact. Negative Homans sign NEUROLOGIC: Normal speech and tone. A&O x 3, moves all extremities, no obvious focal deficits PSYCHIATRIC: Normal affect, normal mood. Stable SKIN: No ulcerations or rashes, good skin turgor, no jaundice VASCULAR: Good capillary refill, neurovascular bundle appears to be intact General: Alert, Oriented X3, Cooperative Heart: Regular rate, Normal S1 Abdomen: Soft Extremities: Other (The LEFT knee shows an antalgic gait using a walker. There is varus alignment. No masses. No detectable effusion. Tenderness on the joint lines. Palpable osteophytes. Range of motion is 2-110 degrees. There is crepitus with range of motion, and pain at the extremes of motion. The knee is stable to varus and valgus stress without subluxation or laxity. Muscle strength is slightly weak for the quadriceps 4/5 which may be due to pain or avoidance, and does not seem neurogenic, and the muscle tone and bulk is slightly decreased. The hamstring strength is 5/5. The skin is normal with no scars, rashes, lesions or ulcers. Light touch sensation is intact. No edema and no varicosities. Dorsalis pedis pulse is intact and capillary refill is normal.) Skin: No breakdown Labs LABS PATIENT: CHELY QUINONES JACCOUNT: [id number] : 1950 LOCATION: SURG AGE: 70 SEX: F EXAM STATUS: REG [facility] [place]. PHYSICIAN: YOLY HUNTER MD REASON: POST OP LEFT KNEE ARTHROPLASTY PROCEDURE: KNEE LEFT 2V EXAM: Left knee, 2 views. HISTORY: Arthroplasty. COMPARISON: None. FINDINGS: 2 views of the left knee are obtained. There is a left knee arthroplasty in expected position. There are track krishnan within the distal femur and proximal tibia due to prior instrumentation. There is soft tissue gas, joint fluid and a drain due to recent surgery. IMPRESSION: Right knee arthroplasty in expected position. Electronically signed by: Mia Austin MD (03/19/2021 10:49 AM) [id number] DICTATED and SIGNED BY: MIA AUSTIN MD DATE: 03/19/21 [id number] 0 Comment Review of Relevant I have reviewed the following items radha (where applicable) has been applied. Medications Current Medications Fentanyl Citrate (Fentanyl 2ml Vial) 25 mcg PRN Q5MIN PRN IVP MILD PAIN 1-3; Start 03/19/21 at 06:00; Stop 03/19/21 at 20:00; Status DC Fentanyl Citrate (Fentanyl 2ml Vial) 50 mcg PRN Q5MIN PRN IVP MODERATE PAIN 4- 6; Start 03/19/21 at 06:00; Stop 03/19/21 at 20:00; Status DC Morphine Sulfate (Morphine Sulfate) 1 mg PRN Q10MIN PRN IVP SEVERE PAIN 7-10; Start 03/19/21 at 06:00; Stop 03/19/21 at 20:00; Status Cancel Ringer's Solution 1,000 ml @ 30 mls/hr Q24H IV Last administered on 03/19/21at 07:04; Start 03/19/21 at 06:00; Stop 03/19/21 at 17:59; Status DC Hydromorphone HCl (Dilaudid) 0.5 mg PRN Q10MIN PRN IVP SEVERE PAIN 7-10, 2nd CHOICE Last administered on 03/19/21at 11:21; Start 03/19/21 at 06:00; Stop 03/19/21 at 20:00; Status DC Prochlorperazine Edisylate (Compazine) 5 mg PACU PRN PRN IVP NAUSEA, MRX1; Start 03/19/21 at 06:00; Stop 03/19/21 at 20:00; Status DC Tranexamic Acid 50 ml @ 50 mls/hr 1X PERIOP ONCE INJ Last administered on 03/19/21at 08:27; Start 03/19/21 at 06:00; Stop 03/19/21 at 06:59; Status DC Ketorolac Tromethamine 30 mg/Ropivacaine 60 ml/Epinephrine HCl 0.5 mg/Sodium Chloride 99.5 ml @ 99.5 mls/hr 1X ONCE INJ Last administered on 03/19/21at 08:47; Start 03/19/21 at 06:00; Stop 03/19/21 at 06:59; Status DC Cefazolin Sodium/ Dextrose 50 ml @ 100 mls/hr 1X ONCE IV Last administered on 03/19/21at 08:17; Start 03/19/21 at 06:00; Stop 03/19/21 at 06:29; Status DC Acetaminophen (Tylenol) 1,000 mg 1X ONCE PO Last administered on 03/19/21at 07:04; Start 03/19/21 at 06:45; Stop 03/19/21 at 06:46; Status DC Tranexamic Acid 50 ml @ As Directed STK-MED ONCE .ROUTE ; Start 03/19/21 at 07:00; Stop 03/19/21 at 07:01; Status DC Vancomycin HCl (Vancomycin) 1 gm STK-MED ONCE .ROUTE Last administered on 03/19/21at 09:36; Start 03/19/21 at 07:01; Stop 03/19/21 at 07:01; Status DC Tranexamic Acid 50 ml @ As Directed STK-MED ONCE .ROUTE ; Start 03/19/21 at 07:01; Stop 03/19/21 at 07:02; Status DC Vancomycin HCl (Vancomycin) 1 gm STK-MED ONCE .ROUTE Last administered on 03/19/21at 09:52; Start 03/19/21 at 07:02; Stop 03/19/21 at 07:02; Status DC Fentanyl Citrate (Fentanyl 5ml Vial) 250 mcg STK-MED ONCE .ROUTE ; Start 03/19/21 at 07:05; Stop 03/19/21 at 07:05; Status DC Propofol (Diprivan) 200 mg STK-MED ONCE IV ; Start 03/19/21 at 07:05; Stop 03/19/21 at 07:05; Status DC Dexamethasone Sodium Phosphate (Decadron) 4 mg STK-MED ONCE .ROUTE ; Start 03/19/21 at 07:05; Stop 03/19/21 at 07:05; Status DC Lidocaine HCl (Lidocaine Pf 2% Vial) 5 ml STK-MED ONCE .ROUTE ; Start 03/19/21 at 07:05; Stop 03/19/21 at 07:05; Status DC Ondansetron HCl (Zofran) 4 mg STK-MED ONCE .ROUTE ; Start 03/19/21 at 07:05; Stop 03/19/21 at 07:05; Status DC Tobramycin Sulfate (Tobramycin Powder) 1.2 gm 1X ONCE TP Last administered on 03/19/21at 09:36; Start 03/19/21 at 07:45; Stop 03/19/21 at 07:46; Status DC Sevoflurane (Ultane) 90 ml STK-MED ONCE IH ; Start 03/19/21 at 10:31; Stop 03/19/21 at 10:32; Status DC Fentanyl Citrate (Fentanyl 2ml Vial) 25 mcg PRN Q1HR PRN IVP PAIN, 2nd CHOICE Last administered on 03/19/21at 15:01; Start 03/19/21 at 10:30 Diphenhydramine HCl (Benadryl) 25 mg PRN Q6HRS PRN IVP ITCHING; Start 03/19/21 at 10:30 Multivitamins (Thera M Plus) 1 tab DAILY PO Last administered on 03/20/21at 07:36; Start 03/19/21 at 11:00 Senna/Docusate Sodium (Senna Plus) 1 tab DAILY PO Last administered on 03/20/21at 07:37; Start 03/20/21 at 09:00 Sodium Chloride 1,000 ml @ 40 mls/hr Q24H IV Last administered on 03/19/21at 14:59; Start 03/19/21 at 10:30 Prochlorperazine Maleate (Compazine) 10 mg PRN Q4HRS PRN PO Nausea/vomiting, 2nd choice; Start 03/19/21 at 10:30 Metoclopramide HCl (Reglan Vial) 10 mg PRN Q4HRS PRN IVP NAUSEA/VOMITING, 3rd CHOICE; Start 03/19/21 at 10:30 Magnesium Hydroxide (Milk Of Magnesia) 2,400 mg 1X PRN PRN PO CONSTIPATION; Start 03/20/21 at 06:00; Stop 03/21/21 at 05:59 Bisacodyl (Dulcolax Supp) 10 mg 1X PRN PRN MI CONSTIPATION; Start 03/20/21 at 16:00; Stop 03/21/21 at 15:59 Zolpidem Tartrate (Ambien) 5 mg PRN QHS PRN PO INSOMNIA, MAY REPEAT IN 1HR; Start 03/19/21 at 10:30 Calcium Carbonate/ Glycine (Tums) 500 mg PRN QID PRN PO INDIGESTION; Start 03/19/21 at 10:30 Sodium Chloride (Normal Saline Flush) 10 ml QSHIFT PRN IV AFTER MEDS AND BLOOD DRAWS; Start 03/19/21 at 10:30 Ondansetron HCl (Zofran) 4 mg Q6HRS IVP Last administered on 03/19/21at 15:08; Start 03/19/21 at 12:00; Stop 03/20/21 at 06:01; Status DC Ondansetron HCl (Zofran Odt) 4 mg Q6HRS PO ; Start 03/19/21 at 12:00; Stop 03/20/21 at 06:01; Status DC Ondansetron HCl (Zofran) 4 mg PRN Q6HRS PRN IVP Nausea/vomiting, 1st choice; Start 03/20/21 at 12:00 Ondansetron HCl (Zofran Odt) 4 mg PRN Q6HRS PRN PO Nausea/vomiting, 1st choice; Start 03/20/21 at 12:00 Dextrose (Dextrose 50%-Water Syringe) 12.5 gm PRN Q15MIN PRN IV SEE COMMENTS; Start 03/19/21 at 10:30 Cefazolin Sodium/ Dextrose 50 ml @ 100 mls/hr Q6H IV Last administered on 03/20/21at 04:00; Start 03/19/21 at 16:00; Stop 03/20/21 at 04:29; Status DC Acetaminophen/ Hydrocodone Bitart (Lortab 10/325) 1 tab PRN Q4HRS PRN PO MODERATE PAIN Last administered on 03/20/21at 00:38; Start 03/19/21 at 10:30 Carbidopa/Levodopa (Sinemet 25/100) 1 tab TID PO Last administered on 03/20/21at 07:37; Start 03/19/21 at 14:00 Chlorthalidone (Thalitone) 12.5 mg DAILY PO ; Start 03/19/21 at 11:00 Lisinopril (Prinivil) 20 mg DAILY PO ; Start 03/19/21 at 11:00 Gabapentin (Neurontin) 100 mg DAILY PO Last administered on 03/20/21at 07:37; Start 03/20/21 at 09:00 Pantoprazole Sodium (Protonix) 40 mg DAILYAC PO Last administered on 03/20/21at 07:37; Start 03/19/21 at 11:30 Tolnaftate (Tinactin) 1 maryana BID TP Last administered on 03/19/21at 20:27; Start 03/19/21 at 21:00; Stop 03/20/21 at 07:41; Status DC Terbinafine HCl (LamISIL) 250 mg DAILY PO Last administered on 03/20/21at 07:37; Start 03/19/21 at 11:00 Hydromorphone HCl (Dilaudid) 2 mg STK-MED ONCE .ROUTE ; Start 03/19/21 at 10:37; Stop 03/19/21 at 10:37; Status DC Acetaminophen/ Hydrocodone Bitart (Lortab 10/325) 2 tab PRN Q4HRS PRN PO SEVERE PAIN Last administered on 03/20/21at 07:37; Start 03/19/21 at 11:00 Polyethylene Glycol (miraLAX PACKET) 17 gm HS PO ; Start 03/19/21 at 21:00 Nystatin (Nystop) 1 maryana BID TP ; Start 03/20/21 at 09:00 Active Scripts Active Reported Hair, Skin & Nails (Multivitamin With Minerals) 1 Each Tablet 1 Each PO DAILY Omeprazole 20 Mg Tablet.dr 20 Mg PO DAILY Lisinopril 20 Mg Tablet 20 Mg PO DAILY Chlorthalidone (Chlorthalidone) 25 Mg Tablet 12.5 Mg PO DAILY Carbidopa-Levodopa 25-100 Tab (Carbidopa/Levodopa) 1 Each Tablet 1 Each PO TID Gabapentin 600 Mg Tablet 100 Mg PO DAILY Hydrocodone-Apap 7.5-325 (Hydrocodone Bit/Acetaminophen) 1 Tab Tablet 1 Tab PO PRN Q6HRS PRN Iron (Ferrous Sulfate) 325 Mg Tablet 325 Mg PO DAILY Vitals/I & O Vital Sign - Last 24 Hours 03/19/21 03/19/21 03/19/21 03/19/21 10:32 10:32 10:40 10:45 Temp 97.3 97.3 97.3 97.3 Pulse 75 79 Resp 16 16 15 B/P (MAP) 92/43 109/46 Pulse Ox 96 98 96 O2 Delivery Mask Simple Mask Simple Mask Simple Mask O2 Flow Rate 8 8 8.0 8.0 03/19/21 03/19/21 03/19/21 03/19/21 10:50 11:00 11:03 11:20 Temp 97.3 97.3 97.3 97.3 Pulse 67 79 72 Resp 15 15 16 B/P (MAP) 102/58 106/48 109/54 Pulse Ox 96 96 94 O2 Delivery Nasal Cannula Nasal Cannula Nasal Cannula O2 Flow Rate 3.0 3 2 03/19/21 03/19/21 03/19/21 03/19/21 11:21 11:30 11:35 11:45 Temp 97.3 97.9 97.3 97.9 Pulse 70 78 Resp 16 18 B/P (MAP) 98/60 110/63 (79) Pulse Ox 94 95 94 O2 Delivery Nasal Cannula Nasal Cannula Nasal Cannula Nasal Cannula O2 Flow Rate 3.0 3 3.0 2.0 03/19/21 03/19/21 03/19/21 03/19/21 12:15 12:21 12:45 13:15 Temp 98.0 97.5 98.0 97.5 Pulse 81 77 67 Resp 20 18 20 B/P (MAP) 96/60 (72) 106/63 (77) 102/58 (73) Pulse Ox 97 95 95 O2 Delivery Room Air Room Air Room Air Room Air 03/19/21 03/19/21 03/19/21 03/19/21 14:02 15:00 15:30 18:37 Temp 98.0 97.3 98.5 98.0 97.3 98.5 Pulse 70 69 66 Resp 18 20 18 B/P (MAP) 112/62 (79) 108/67 (81) 111/61 (78) Pulse Ox 96 95 95 94 O2 Delivery Room Air Room Air Room Air Room Air 03/19/21 03/19/21 03/19/21 03/19/21 20:00 20:26 21:30 22:08 Temp 98.0 98.0 Pulse 83 Resp 20 20 18 B/P (MAP) 108/63 (78) Pulse Ox 92 O2 Delivery Room Air Room Air Room Air 03/20/21 03/20/21 03/20/21 03/20/21 00:38 01:42 02:56 06:11 Temp 98.1 98.0 98.1 98.0 Pulse 71 65 Resp 20 20 18 18 B/P (MAP) 93/52 (66) 100/55 (70) Pulse Ox 93 95 O2 Delivery Room Air Room Air Room Air 03/20/21 07:37 Pulse Ox 95 O2 Delivery Room Air Intake and Output 03/19/21 03/19/21 03/20/21 15:00 23:00 07:00 Intake Total 2060 ml 120 ml 1000 ml Output Total 350 ml Balance 1710 ml 120 ml 1000 ml Justicifation of Admission Dx: Justifications for Admission: Justification of Admission Dx: Yes Comments: KAYE QUINTANA MD Mar 20, 2021 08:12
[2021-03-20] MEDS: NYSTATIN TOPICAL POWDER 15GM BOTTLE. TP SCH ×2 (09:00→20:48)
[2021-03-20] MEDS: CHLORTHALIDONE 25 MG TABLET. PO SCH (09:00)
[2021-03-20] MEDS: LISINOPRIL 20 MG TABLET PO SCH (09:00)
[2021-03-20] MEDS: IV NORMAL SALINE 1000ML BAG 1,000 ML IV SCH (10:30)
[2021-03-20] MEDS ORDERED: ONDANSETRON ODT 4 MG TAB.RAPDIS. PO PRN (12:00)
[2021-03-20] MEDS ORDERED: ONDANSETRON PF 4 MG/2 ML VIAL. IVP PRN (12:00)
--- NOTE | 2021-03-20 13:04 | PDOC ---
PROGRESS NOTES Date of Service DATE: 03/20/21 TIME: 13:02 Subjective Subjective Quite a bit of pain at first. Received IV pain meds to control. Objective Vital Signs Vital Signs Date Time Temp Pulse Resp B/P (MAP) Pulse Ox O2 Delivery O2 Flow Rate FiO2 03/20/21 12:45 95 Room Air 03/20/21 09:00 65 95/44 03/20/21 06:11 98.0 18 98.0 03/19/21 11:45 2.0 Physical Exam AMIRA intact but with bloody drainage. Calf soft and NT. Good AROM of foot and toes. Intact sensation distally. No sign of compartment syndrome or DVT. No blisters. Imaging Report reviewed, images independently reviewed. Satisfactory TKA without apparent complications. PATIENT: CHELY QUINONES JACCOUNT: [id number]#: [id number] : 1950 LOCATION: SURG AGE: 70 SEX: F EXAM STATUS: REG [facility] [place] [facility]D. PHYSICIAN: YOLY FRANCO MD REASON: POST OP LEFT KNEE ARTHROPLASTY PROCEDURE: KNEE LEFT 2V EXAM: Left knee, 2 views. HISTORY: Arthroplasty. COMPARISON: None. FINDINGS: 2 views of the left knee are obtained. There is a left knee arthroplasty in expected position. There are track krishnan within the distal femur and proximal tibia due to prior instrumentation. There is soft tissue gas, joint fluid and a drain due to recent surgery. IMPRESSION: Right knee arthroplasty in expected position. Electronically signed by: Mia Sears MD (03/19/2021 10:49 AM) [id number] Plan Plan of Care POD# 1 after TKA Continue PT. Not yet able to get out of bed without assistance. Need to watch incision for blisters. IV pain meds if necessary. Medical hospitalist inputs appreciated. Justicifation of Admission Dx: Justifications for Admission: Justification of Admission Dx: Yes YOLY FRANCO MD Mar 20, 2021 13:04
[2021-03-20] MEDS ORDERED: BISACODYL 10 MG SUPP.RECT. PR PRN (16:00)
[2021-03-20] MEDS: ASPIRIN ENTERIC COATED 325 MG TABLET.DR. PO SCH ×2 (17:21→20:48)
[2021-03-20 17:32] VITALS: BP 108/61
[2021-03-20] MEDS: POLYETHYLENE GLYCOL 3350 17 GM PACKET. PO SCH (19:10)
[2021-03-20 23:09] VITALS: BP 105/54
[2021-03-21 02:49] VITALS: BP 93/52
[2021-03-21] MEDS: PANTOPRAZOLE 40 MG TABLET.DR. PO SCH (06:35)
[2021-03-21] MEDS: HYDROcodone/APAP 10/325 1 TAB TABLET PO PRN ×3 (06:36→15:43)
[2021-03-21 06:54] VITALS: BP 114/58
[2021-03-21] MEDS: IV NORMAL SALINE 1000ML BAG 1,000 ML IV SCH (07:22)
[2021-03-21] MEDS: POLYETHYLENE GLYCOL 3350 17 GM PACKET. PO SCH (08:31)
[2021-03-21] MEDS: MULTIVITAMIN with MINERAL TABLET. PO SCH (08:32)
[2021-03-21] MEDS: CARBIDOPA/LEVODOPA 25/100MG TABLET PO SCH ×2 (08:32→13:43)
[2021-03-21] MEDS: SENNOSIDES/DOCUSATE 8.6/50MG TABLET. PO SCH (08:32)
[2021-03-21] MEDS: CHLORTHALIDONE 25 MG TABLET. PO SCH (08:32)
[2021-03-21] MEDS: TERBINAFINE 250 MG TABLET. PO SCH (08:32)
[2021-03-21] MEDS: ASPIRIN ENTERIC COATED 325 MG TABLET.DR. PO SCH (08:32)
[2021-03-21] MEDS: GABAPENTIN 100 MG CAPSULE. PO SCH (08:32)
[2021-03-21] MEDS: NYSTATIN TOPICAL POWDER 15GM BOTTLE. TP SCH (08:33)
--- NOTE | 2021-03-21 08:37 | PDOC ---
PROGRESS NOTES Date of Service DATE: 03/21/21 TIME: 08:36 Subjective Subjective Planning on discharge today. Objective Vital Signs Vital Signs Date Time Temp Pulse Resp B/P (MAP) Pulse Ox O2 Delivery O2 Flow Rate FiO2 03/21/21 07:48 Room Air 03/21/21 06:54 98.4 76 20 114/58 (76) 94 98.4 03/21/21 02:50 2.0 Physical Exam AMIRA is intact with xome blood and will be changed prior to discharge. Hemovac was removed evening of POD1. Calf soft and nontender. Assessment Assessment POD #2 TKA Plan Plan of Care Discharge today to home with home health outpatient physical therapy. Office followup in 10-14 days. Continue DVT prophylaxis. Justicifation of Admission Dx: Justifications for Admission: Justification of Admission Dx: Yes YOLY FRANCO MD Mar 21, 2021 08:37
[2021-03-21] MEDS: LISINOPRIL 20 MG TABLET PO SCH (08:38)
--- NOTE | 2021-03-21 08:42 | PDOC3 ---
Discharge Summary Visit Information Date of Admission: Mar 19, 2021 Date of Discharge: Mar 21, 2021 Final Diagnosis Aftercare after left total knee arthroplasty. Left knee osteoarthritis. Brief Hospital Course Allergies Allergies Coded Allergies Type Severity Reaction Last Updated Verified No Known Medication Allergies Allergy Unknown 03/20/21 Yes morphine Adverse Reaction Unknown 03/19/21 Yes oxycodone Adverse Reaction Unknown 03/19/21 Yes Vital Signs Vital Signs Date Time Temp Pulse Resp B/P (MAP) Pulse Ox O2 Delivery O2 Flow Rate FiO2 03/21/21 07:48 Room Air 03/21/21 06:54 98.4 76 20 114/58 (76) 94 98.4 03/21/21 02:50 2.0 Brief Hospital Course 70 year old who presented with knee osteoarthritis, for elective total knee arthroplasty. The patient underwent total knee arthroplasty under general anesthesia the day of admission. Perioperative antibiotics and DVT prophylaxis were used. Postoperatively physical therapy and case management were consulted. The patient progressed and is stable for discharge. Discharge Information Condition at Discharge: Stable Follow Up: Weeks Disposition/Orders: D/C to Home w/ HH Scheduled Carbidopa/Levodopa (Carbidopa-Levodopa 25-100 Tab), 1 EACH PO TID, (Reported) Chlorthalidone (Chlorthalidone ), 12.5 MG PO DAILY, (Reported) Ferrous Sulfate (Iron), 325 MG PO DAILY, (Reported) Gabapentin (Gabapentin), 100 MG PO DAILY, (Reported) Lisinopril (Lisinopril), 20 MG PO DAILY, (Reported) Multivitamin With Minerals (Hair, Skin & Nails), 1 EACH PO DAILY, (Reported) Omeprazole (Omeprazole), 20 MG PO DAILY, (Reported) Scheduled PRN Hydrocodone Bit/Acetaminophen (Hydrocodone-Apap 7.5-325 ), 1 TAB PO PRN Q6HRS PRN for PAIN, (Reported) Patient Instructions Patient Instructions Continue to weight bearing as tolerated with walker. Keep AMIRA dressing intact and dry. Cut off AMIRA "tail" and throw away battery pack on the 7th day after surgery. Tape down AMIRA tail Leave AMIRA dressing intact otherwise. Follow up with Dr. Hunter's office next week. Call for appointment unless already scheduled. Continue enteric coated aspirin 325 mg by mouth twice a day for 30 days to prevent blood clots. Justicifation of Admission Dx: Justifications for Admission: Justification of Admission Dx: Yes YOLY HUNTER MD Mar 21, 2021 08:42
--- NOTE | 2021-03-21 09:00 | NUR ---
refuses to take a shower. "will take one I'm at home." reviewed dressing care and shower. she is rating her pain a "6".
[2021-03-21] MEDS ORDERED: ASPI325T11 PO (09:17)
[2021-03-21] MEDS ORDERED: NYST15PO9 TP (09:17)
[2021-03-21 13:24] LABS: HEMATOCRIT 32.4 % (36.0-47.0); HEMOGLOBIN 10.9 g/dL (12.0-15.5)
[2021-03-21 15:00] VITALS: BP 128/54
--- NOTE | 2021-03-21 15:00 | NUR ---
reviewed discharge instructions with abljinder. reviewed dressing care, follow up and medications. pain medication is at her pharmacy. reinforced that aspirin needs to have a dose tonight. follow up appt with Leif Bradley next Friday. op therapy starts Friday at 9 at the [facility]. showed the easiest entrance. verbalized understanding.
--- NOTE | 2021-03-21 16:31 | NUR ---
dismissed to home with personal belongings and new walker. she has her hearing aide, clothing jacket dentures. saline lock removed. medicated prior to dismissal. again reminded to pick pack worker full strength aspirin at drug store for dose tonight.
== END 2021-03-21 16:15 | disposition home or self-care (01) ==
LOC: SURG 06:08 → 4 SOUTHEST 10:30
PROVIDERS: ADMIT Orthopaedic Surgery; ATTEND Orthopaedic Surgery
DX: M17.12 Unilateral primary osteoarthritis, left knee (principal); I10 Essential (primary) hypertension; G20 Parkinson's disease; M81.0 Age-related osteoporosis without current pathological fracture; K21.9 Gastro-esophageal reflux disease without esophagitis; G56.00 Carpal tunnel syndrome, unspecified upper limb; Z96.652 Presence of left artificial knee joint; Z47.1 Aftercare following joint replacement surgery; Z90.49 Acquired absence of other specified parts of digestive tract; Z87.891 Personal history of nicotine dependence; Z98.890 Other specified postprocedural states
CPT/HCPCS: 27447; 36415; 73560; 85014; 85018; 86850; 86900; 86901; 88305; 88311; 96365; 96366; 96375; 96376; 97110; 97116; 97150; 97162; 97166; 97530; 97535; A4213; A4628; A4930; A6450; C1713; C1776; G0378; J0171; J0690; J1100; J1170; J1885; J2405; J2704; J2795; J3010; J3260; J3370; J7030; G0379

== ENCOUNTER 2021-10-13 09:19 | Observation (INO) | payer MEDICARE, MEDICAID ==
[~2021-10-13] VITALS: Ht 162.6 cm; Wt 94.0 kg
[~2021-10-13 09:19] MED LIST changes: +ASPI325T11 PO; -IV RINGERS,LACTATED 1000ML 1,000 ML IV SCH; -KETOROLAC 30MG VIAL 30 MG, ROPIVacaine 0.5% PF 60 ML, EPINEPHrine 0.5 MG in IV NORMAL S... INJ ONE; -MORPHINE SULFATE 2 MG/ML VIAL. IVP PRN; -MULT-55 PO; +MULT-684 PO; +NYST15PO9 TP; -PROCHLORPERAZINE 10 MG/2 ML VIAL. IVP PRN; -TRANEXAMIC ACID in NS IVPB 50 ML INJ ONE; -fentaNYL PF VIAL 100 MCG/2 ML VIAL IVP PRN
[2021-10-13] MEDS ORDERED: IV NORMAL SALINE 1000ML BAG 1,000 ML IV ONE (09:45)
[2021-10-13 09:57] LABS: BASO # 0.1 x10^3/uL (0.0-0.2); BASO % 0 % (0-3); EOS # 0.1 x10^3/uL (0.0-0.7); EOS % 1 % (0-3); HEMATOCRIT 39.9 % (36.0-47.0); HEMOGLOBIN 13.5 g/dL (12.0-15.5); LYMPH # 2.5 x10^3/uL (1.0-4.8); LYMPH % 18 % (24-48); MEAN CORPUSCULAR HEMOGLOBIN 31 pg (25-35); MEAN CORPUSCULAR HGB CONC 34 g/dL (31-37); MEAN CORPUSCULAR VOLUME 92 fL (79-100); MONO % 7 % (0-9); NEUT # 10.3 x10^3/uL (1.8-7.7); NEUT % 74 % (31-73); PLATELET COUNT 98 x10^3/uL (140-400); RED BLOOD COUNT 4.34 x10^6/uL (3.50-5.40); RED CELL DISTRIBUTION WIDTH 13.7 % (11.5-14.5); WHITE BLOOD COUNT 13.9 x10^3/uL (4.0-11.0)
[2021-10-13 10:03] LABS: CALCIUM 8.6 mg/dL (8.5-10.1); CREATININE 2.2 mg/dL (0.6-1.0); GFR 21.9; POTASSIUM 3.6 mmol/L (3.5-5.1)
[2021-10-13 10:05] LABS: PROTHROMBIN TIME PATIENT 14.3 SEC (11.7-14.0)
[2021-10-13 10:09] LABS: ALBUMIN 3.1 g/dL (3.4-5.0); ALBUMIN/GLOBULIN RATIO 0.8 (1.0-1.7); TOTAL BILIRUBIN 1.3 mg/dL (0.2-1.0)
--- NOTE | 2021-10-13 10:20 | RAD ---
EXAM: CHEST 1 VIEW History: Rectal bleeding COMPARISON: 02/26/2021. TECHNIQUE: Single portable radiograph of the chest FINDINGS: The cardiac silhouette is unremarkable. The lungs are clear bilaterally. The costophrenic sulci are clear and well demarcated. IMPRESSION: No radiographic evidence of an acute cardiopulmonary process. Electronically signed by: Waqas Grady MD (10/13/2021 10:17 AM) [id number]
--- NOTE | 2021-10-13 10:28 | PHYS DOC ---
Past Medical History Additional Past Medical Histor: "WATER PILL", "BLADDER ISSUES" Past Surgical History: Knee Replacement Smoking Status: Never Smoker Alcohol Use: None General Adult EDM: Chief Complaint: RECTAL BLEED HPI: HPI: Patient is a 71 year old female who presents with rectal bleeding since last night. Patient states yesterday she started feeling dizzy and had diarrhea when she noticed blood in her stool. Patient is reporting abdominal pain and pressure. Patient denies taking anything at home for pain. Denies blood thinners. History of hypertension, overactive bladder, Parkinson's. Review of Systems: Review of Systems: ROS At least 10 ROS systems have been reviewed and are negative except as documented in the HPI. General: Negative except as outlined in HPI above. Skin: Negative except as outlined in HPI above. HEENT: Negative except as outlined in HPI above. Neck: Negative except as outlined in HPI above. Respiratory: Negative except as outlined in HPI above.. Cardiovascular: Negative except as outlined in HPI above. Abdomen: Negative except as outlined in HPI above. : Negative except as outlined in HPI above. Back/MSK: Negative except as outlined in HPI above. Neuro: Negative except as outlined in HPI above. Psych: Negative except as outlined in HPI above. Heart Score: C/O Chest Pain: No Risk Factors: Risk Factors: DM, Current or recent (<one month) smoker, HTN, HLP, family history of CAD, obesity. Risk Scores: Score 0 - 3: 2.5% MACE over next 6 weeks - Discharge Home Score 4 - 6: 20.3% MACE over next 6 weeks - Admit for Clinical Observation Score 7 - 10: 72.7% MACE over next 6 weeks - Early Invasive Strategies Current Medications: Current Medications Medications (Trade) Dose Ordered Sig/Linda Start Time Stop Time Status Last Admin Dose Admin Sodium Chloride 1,000 ml @ 0 mls/hr 1X ONCE 10/13/21 09:45 10/13/21 09:46 DC 10/13/21 09:10 999 MLS/HR Allergies: Allergies: Allergies Coded Allergies Type Severity Reaction Last Updated Verified morphine Adverse Reaction Unknown 03/19/21 Yes oxycodone Adverse Reaction Unknown 03/19/21 Yes Physical Exam: PE: Constitutional: Well developed, well nourished, no acute distress, non-toxic appearance. [] HENT: Normocephalic, atraumatic, bilateral external ears normal, oropharynx moist, no oral exudates, nose normal. [] Eyes: PERRLA, EOMI, conjunctiva normal, no discharge. [] Neck: Normal range of motion, no tenderness, supple, no stridor. [] Cardiovascular:Heart rate regular rhythm, no murmur [] Lungs & Thorax: Bilateral breath sounds clear to auscultation [] Abdomen: Bowel sounds normal, soft, lower abdominal tenderness Skin: Warm, dry, no erythema, no rash. [] Back: No tenderness, no CVA tenderness. [] Extremities: No tenderness, no cyanosis, no clubbing, ROM intact, no edema. [] Neurologic: Alert and oriented X 3, normal motor function, normal sensory function, no focal deficits noted. [] Psychologic: Affect normal, judgement normal, mood normal. [] Current Patient Data: Labs: Laboratory Tests Test 10/13/21 09:27 White Blood Count 13.9 x10^3/uL (4.0-11.0) H Red Blood Count 4.34 x10^6/uL (3.50-5.40) Hemoglobin 13.5 g/dL (12.0-15.5) Hematocrit 39.9 % (36.0-47.0) Mean Corpuscular Volume 92 fL (79-100) Mean Corpuscular Hemoglobin 31 pg (25-35) Mean Corpuscular Hemoglobin Concent 34 g/dL (31-37) Red Cell Distribution Width 13.7 % (11.5-14.5) Platelet Count 98 x10^3/uL (140-400) L Neutrophils (%) (Auto) 74 % (31-73) H Lymphocytes (%) (Auto) 18 % (24-48) L Monocytes (%) (Auto) 7 % (0-9) Eosinophils (%) (Auto) 1 % (0-3) Basophils (%) (Auto) 0 % (0-3) Neutrophils # (Auto) 10.3 x10^3/uL (1.8-7.7) H Lymphocytes # (Auto) 2.5 x10^3/uL (1.0-4.8) Monocytes # (Auto) 1.0 x10^3/uL (0.0-1.1) Eosinophils # (Auto) 0.1 x10^3/uL (0.0-0.7) Basophils # (Auto) 0.1 x10^3/uL (0.0-0.2) Prothrombin Time 14.3 SEC (11.7-14.0) H Prothrombin Time INR 1.1 (0.8-1.1) Activated Partial Thromboplast Time 29 SEC (24-38) Laboratory Tests 10/13/21 09:27 Vital Signs: Vital Signs Date Time Temp Pulse Resp B/P (MAP) Pulse Ox O2 Delivery O2 Flow Rate FiO2 10/13/21 09:20 97.9 71 16 73/36 (48) 98 Room Air 97.9 EKG: EKG: Sinus rhythm. Heart rate 59 bpm. No STEMI. Read by Dr. Perez [id number] [] Radiology/Procedures: Radiology/Procedures: []EXAM: CHEST 1 VIEW History: Rectal bleeding COMPARISON: 02/26/2021. TECHNIQUE: Single portable radiograph of the chest FINDINGS: The cardiac silhouette is unremarkable. The lungs are clear bilaterally. The costophrenic sulci are clear and well demarcated. IMPRESSION: No radiographic evidence of an acute cardiopulmonary process. Electronically signed by: Waqas Grady MD (10/13/2021 10:17 AM) [id number] CT ABDOMEN+PELVIS WO dated 10/13/2021 10:21 AM Indication:Reason: abdominal pain, rectal bleeding, CREATINE 2.2 GFR . Instructions: / History: Comparison: No comparison is available. Technique: Helical noncontrast images were performed. One or more of the following individualized dose reduction techniques were utilized for this examination: 1. Automated exposure control 2. Adjustment of the mA and/or kV according to patient size 3. Use of iterative reconstruction technique Findings: There is minimal dependent atelectasis. Lung bases otherwise are clear. The liver and spleen are homogeneous in density and normal in configuration. There is a calcific density along the posterior margin of the right lobe of the liver. There apparently has been cholecystectomy performed. The biliary tree is mildly prominent in caliber, possibly related to prior cholecystectomy. Evaluation of the solid organs is somewhat limited by lack of IV contrast. There are cysts in the kidneys. No solid mass or obstruction is seen. There may be a small left adrenal nodule measuring about 8 mm. No pancreatic abnormality is seen. There is no apparent retroperitoneal or mesenteric adenopathy. There is no abdominal soft tissue mass. Density in the distal stomach is consistent with ingested material. The descending colon shows diffuse wall thickening with some adjacent inflammation. There is no bowel obstruction. Images through the pelvis show no apparent abnormality of the distal ureters or bladder. No pelvic or inguinal adenopathy is seen. There is no apparent pelvic mass or inflammatory process. There is evidence of prior bowel anastomosis in the sigmoid colon. There is a fat-containing hernia through the right lower anterior abdominal wall. IMPRESSION: Findings suggest colitis of the descending colon. Electronically signed by: Yaakov Recio Jr., MD (10/13/2021 10:54 AM) [id number] Course & Med Decision Making: Course & Med Decision Making Pertinent Labs and Imaging studies reviewed. (See chart for details) [] 71-year-old female presents with dizziness reactivating. Noticed rectal bleeding started yesterday. Patient has bright red blood in her brief. Blood pressure on arrival was 70s. Patient was given NS bolus and blood pressure improved to 109/55. CT abdomen pelvis suggest colitis of the descending colon. BUN 32, creatinine 2.2, which are comparable to previous visits. Positive stool occult blood. Discussed all results with patient. Advised patient that we would need to admit her for further evaluation. Dragon Disclaimer: Dragon Disclaimer: This electronic medical record was generated, in whole or in part, using a voice recognition dictation system. Departure Departure Referrals: BRITTNI HARVEY JR, MD (PCP) RHIANNA SOSA TOMBSTONE SETTER Oct 13, 2021 10:28
--- NOTE | 2021-10-13 10:56 | RAD ---
CT ABDOMEN+PELVIS WO dated 10/13/2021 10:21 AM Indication:Reason: abdominal pain, rectal bleeding, CREATINE 2.2 GFR 21 / Spl. Instructions: / Histo ry: Comparison: No comparison is available. Technique: Helical noncontrast images were performed. One or more of the following individualized dose reduction techniques were utilized for this examinat ion: 1. Automated exposure control 2. Adjustment of the mA and/or kV according to patient size 3. Use of iterative reconstruction technique Findings: There is minimal dependent atelectasis. Lung bases otherwise are clear. The liver and spleen are homo geneous in density and normal in configuration. There is a calcific density along the posterior gómez n of the right lobe of the liver. There apparently has been cholecystectomy performed. The biliary tr ee is mildly prominent in caliber, possibly related to prior cholecystectomy. Evaluation of the solid organs is somewhat limited by lack of IV contrast. There are cysts in the kidneys. No solid mass or obstruction is seen. There may be a small left adrenal nodule measuring about 8 mm. No pancreatic abn ormality is seen. There is no apparent retroperitoneal or mesenteric adenopathy. There is no abdomina l soft tissue mass. Density in the distal stomach is consistent with ingested material. The descendin g colon shows diffuse wall thickening with some adjacent inflammation. There is no bowel obstruction. Images through the pelvis show no apparent abnormality of the distal ureters or bladder. No pelvic or inguinal adenopathy is seen. There is no apparent pelvic mass or inflammatory process. There is evid ence of prior bowel anastomosis in the sigmoid colon. There is a fat-containing hernia through the ri t lower anterior abdominal wall. IMPRESSION: Findings suggest colitis of the descending colon. Electronically signed by: Yaakov Recio Jr., MD (10/13/2021 10:54 AM) [id number]
[2021-10-13 11:46] LABS: FECAL OB PT POSITIVE (NEG)
[2021-10-13] MEDS ORDERED: CALCIUM CARBONATE 500 MG TAB.CHEW PO PRN (12:30)
[2021-10-13] MEDS ORDERED: IV RINGERS,LACTATED 1000ML 1,000 ML IV SCH (12:30)
[2021-10-13] MEDS ORDERED: MAGNESIUM HYDROXIDE 2,400 MG/30 ML ORAL.SUSP. PO PRN (12:30)
[2021-10-13] MEDS ORDERED: ZOLPIDEM 5 MG TABLET. PO PRN (12:30)
[2021-10-13] MEDS ORDERED: HYDROcodone/APAP 5/325MG 1 TAB TABLET PO PRN (12:30)
[2021-10-13] MEDS ORDERED: ACETAMINOPHEN 325 MG TABLET. PO PRN (12:30)
[2021-10-13] MEDS ORDERED: ONDANSETRON PF 4 MG/2 ML VIAL. IVP PRN (12:30)
[2021-10-13] MEDS ORDERED: LACTULOSE 20 GM/30 ML SOLUTION. PO PRN (12:30)
[2021-10-13] MEDS ORDERED: MORPHINE SULFATE 2 MG/ML INJ. IV PRN (12:30)
[2021-10-13] MEDS ORDERED: ELECTROLYTE (NON-ICU) PROTOCOL. MC PRN (12:30)
[2021-10-13] MEDS ORDERED: oxyCODONE IR 5 MG TABLET PO PRN (12:30)
[2021-10-13 14:10] VITALS: BP 110/51
[2021-10-13] MEDS ORDERED: HYDROcodone/APAP 7.5/325MG 1 TAB TABLET PO PRN (14:45)
[2021-10-13] MEDS ORDERED: CIPROFLOXACIN 400MG PREMIX 200 ML IV SCH (14:45)
--- NOTE | 2021-10-13 14:45 | PDOC1 ---
History and Physical Date of Admission Date of Admission 10/13/2021 Identification/Chief Complaint Chief Complaint blood in my stools Source Source: Patient History of Present Illness History of Present Illness Patient is a 71-year-old female with past medical history of Parkinson's disease with no recent changes in her medications was in her usual state of health until the evening prior to her admission when she started noticing bright red blood per rectum. The patient denied any abdominal discomfort at the time she did have some lightheadedness associated with the event. The patient went to bed and this morning had apparently another large bowel movement with regina red blood per rectum. Patient did have some discomfort especially over her lower abdomen that she describes as a pressure sensation 7 out of 10 intensity with no radiation to the groin nor the back no CVA tenderness no urinary symptoms were reported. The patient denies radiation to the groin. She did not self medicate. The patient denies dietary transgressions no travels outside the area no recent antibiotic use no history of sick contacts, at the time my evaluation the patient is laying in bed in no apparent distress. She is quite uncomfortable it seems with her tongue which has thrush she describes some dysphagia that has been present for quite some time. No changes to her medications have been done recently she does not use steroid inhalers she denies headache blurred vision no palpitations no chest pain no shortness of breath no cough or sputum production has been reported. Patient was found to have colitis on CT scan performed in the emergency department reason why we were asked to admit for further treatment. Plan of care has been explained detail all of the patient's concerns were addressed to the best of my abilities Past Medical History Cardiovascular: HTN CENTRAL NERVOUS SYSTEM: Carpal Tunnel Syndrome Endocrine: Osteoporosis Past Surgical History Past Surgical History: Cholecystectomy Family History Family History: No Significant Social History Smoke: No ALCOHOL: none Drugs: None Current Medications Current Medications Current Medications Medications (Trade) Dose Ordered Sig/Linda Start Time Stop Time Status Last Admin Dose Admin Acetaminophen (Tylenol) 650 mg PRN Q6HRS PRN 10/13/21 12:30 Acetaminophen/ Hydrocodone Bitart (Lortab 5/325) 1 tab PRN Q4HRS PRN 10/13/21 12:30 Calcium Carbonate/ Glycine (Tums) 500 mg PRN Q3HRS PRN 10/13/21 12:30 Info (Non-Icu Electrolyte Protocol) 1 ea PRN DAILY PRN 10/13/21 12:30 Lactulose (Lactulose) 20 gm PRN Q12HR PRN 10/13/21 12:30 Magnesium Hydroxide (Milk Of Magnesia) 2,400 mg PRN Q12HR PRN 10/13/21 12:30 Morphine Sulfate (Morphine Sulfate) 2 mg PRN Q1HR PRN 10/13/21 12:30 Ondansetron HCl (Zofran) 4 mg PRN Q6HRS PRN 10/13/21 12:30 Oxycodone HCl (Roxicodone) 5 mg PRN Q3HRS PRN 10/13/21 12:30 Ringer's Solution 1,000 ml @ 100 mls/hr Q10H 10/13/21 12:30 10/13/21 22:29 Senna/Docusate Sodium (Senna Plus) 1 tab BID 10/13/21 21:00 Sodium Chloride 1,000 ml @ 0 mls/hr 1X ONCE 10/13/21 09:45 10/13/21 09:46 DC 10/13/21 09:10 999 MLS/HR Zolpidem Tartrate (Ambien) 5 mg PRN QHS PRN 10/13/21 12:30 Allergies Allergies Allergies Coded Allergies Type Severity Reaction Last Updated Verified morphine Adverse Reaction Unknown 03/19/21 Yes oxycodone Adverse Reaction Unknown 03/19/21 Yes ROS Review of System CONSTITUTIONAL: No fever or chills EYES: No recent changes SKIN: No rash or itching CARDIOVASCULAR: No chest pain, syncope, palpitations, or edema RESPIRATORY: No SOB or cough GASTROINTESTINAL: No nausea, vomiting or abdominal pain NEUROLOGICAL: No headaches or weakness ENDOCRINE: No cold or heat intolerance GENITOURINARY: No urgency or frequency of urination MUSCULOSKELETAL: No back pain or joint pain LYMPHATICS: No enlarged lymph nodes PSYCHIATRIC: No anxiety or depression Physical Exam Physical Exam GEN.: No apparent distress. Alert and oriented. HEENT: Head is normocephalic, atraumatic NECK: Supple. LUNGS: Clear to auscultation. HEART: RRR, S1, S2 present. Peripheral pulses intact ABDOMEN: Soft, nontender. Positive bowel sounds. EXTREMITIES: Without any cyanosis. NEUROLOGIC: Normal speech, normal tone PSYCHIATRIC: Normal affect, normal mood. SKIN: No ulcerations Vitals Vitals Vital Signs Date Time Temp Pulse Resp B/P (MAP) Pulse Ox O2 Delivery O2 Flow Rate FiO2 10/13/21 09:20 97.9 71 16 73/36 (48) 98 Room Air 97.9 Labs Labs Laboratory Tests Test 10/13/21 09:27 10/13/21 09:36 White Blood Count 13.9 x10^3/uL (4.0-11.0) Red Blood Count 4.34 x10^6/uL (3.50-5.40) Hemoglobin 13.5 g/dL (12.0-15.5) Hematocrit 39.9 % (36.0-47.0) Mean Corpuscular Volume 92 fL (79-100) Mean Corpuscular Hemoglobin 31 pg (25-35) Mean Corpuscular Hemoglobin Concent 34 g/dL (31-37) Red Cell Distribution Width 13.7 % (11.5-14.5) Platelet Count 98 x10^3/uL (140-400) Neutrophils (%) (Auto) 74 % (31-73) Lymphocytes (%) (Auto) 18 % (24-48) Monocytes (%) (Auto) 7 % (0-9) Eosinophils (%) (Auto) 1 % (0-3) Basophils (%) (Auto) 0 % (0-3) Neutrophils # (Auto) 10.3 x10^3/uL (1.8-7.7) Lymphocytes # (Auto) 2.5 x10^3/uL (1.0-4.8) Monocytes # (Auto) 1.0 x10^3/uL (0.0-1.1) Eosinophils # (Auto) 0.1 x10^3/uL (0.0-0.7) Basophils # (Auto) 0.1 x10^3/uL (0.0-0.2) Prothrombin Time 14.3 SEC (11.7-14.0) Prothromb Time International Ratio 1.1 (0.8-1.1) Activated Partial Thromboplast Time 29 SEC (24-38) Sodium Level 141 mmol/L (136-145) Potassium Level 3.6 mmol/L (3.5-5.1) Chloride Level 105 mmol/L (98-107) Carbon Dioxide Level 22 mmol/L (21-32) Anion Gap 14 (6-14) Blood Urea Nitrogen 32 mg/dL (7-20) Creatinine 2.2 mg/dL (0.6-1.0) Estimated GFR (Cockcroft-Gault) 21.9 BUN/Creatinine Ratio 15 (6-20) Glucose Level 145 mg/dL (70-99) Calcium Level 8.6 mg/dL (8.5-10.1) Total Bilirubin 1.3 mg/dL (0.2-1.0) Aspartate Amino Transf (AST/SGOT) 60 U/L (15-37) Alanine Aminotransferase (ALT/SGPT) 43 U/L (14-59) Alkaline Phosphatase 139 U/L (46-116) Total Protein 7.0 g/dL (6.4-8.2) Albumin 3.1 g/dL (3.4-5.0) Albumin/Globulin Ratio 0.8 (1.0-1.7) Stool Occult Blood Positive (NEG) Laboratory Tests Test 10/13/21 09:27 10/13/21 09:36 White Blood Count 13.9 x10^3/uL (4.0-11.0) Red Blood Count 4.34 x10^6/uL (3.50-5.40) Hemoglobin 13.5 g/dL (12.0-15.5) Hematocrit 39.9 % (36.0-47.0) Mean Corpuscular Volume 92 fL (79-100) Mean Corpuscular Hemoglobin 31 pg (25-35) Mean Corpuscular Hemoglobin Concent 34 g/dL (31-37) Red Cell Distribution Width 13.7 % (11.5-14.5) Platelet Count 98 x10^3/uL (140-400) Neutrophils (%) (Auto) 74 % (31-73) Lymphocytes (%) (Auto) 18 % (24-48) Monocytes (%) (Auto) 7 % (0-9) Eosinophils (%) (Auto) 1 % (0-3) Basophils (%) (Auto) 0 % (0-3) Neutrophils # (Auto) 10.3 x10^3/uL (1.8-7.7) Lymphocytes # (Auto) 2.5 x10^3/uL (1.0-4.8) Monocytes # (Auto) 1.0 x10^3/uL (0.0-1.1) Eosinophils # (Auto) 0.1 x10^3/uL (0.0-0.7) Basophils # (Auto) 0.1 x10^3/uL (0.0-0.2) Prothrombin Time 14.3 SEC (11.7-14.0) Prothromb Time International Ratio 1.1 (0.8-1.1) Activated Partial Thromboplast Time 29 SEC (24-38) Sodium Level 141 mmol/L (136-145) Potassium Level 3.6 mmol/L (3.5-5.1) Chloride Level 105 mmol/L (98-107) Carbon Dioxide Level 22 mmol/L (21-32) Anion Gap 14 (6-14) Blood Urea Nitrogen 32 mg/dL (7-20) Creatinine 2.2 mg/dL (0.6-1.0) Estimated GFR (Cockcroft-Gault) 21.9 BUN/Creatinine Ratio 15 (6-20) Glucose Level 145 mg/dL (70-99) Calcium Level 8.6 mg/dL (8.5-10.1) Total Bilirubin 1.3 mg/dL (0.2-1.0) Aspartate Amino Transf (AST/SGOT) 60 U/L (15-37) Alanine Aminotransferase (ALT/SGPT) 43 U/L (14-59) Alkaline Phosphatase 139 U/L (46-116) Total Protein 7.0 g/dL (6.4-8.2) Albumin 3.1 g/dL (3.4-5.0) Albumin/Globulin Ratio 0.8 (1.0-1.7) Stool Occult Blood Positive (NEG) VTE Prophylaxis Ordered VTE Prophylaxis Devices: Yes VTE Pharmacological Prophylaxi: Yes Assessment/Plan Assessment/Plan Colitis of the descending colon Oral candidiasis History of Parkinson's disease History of essential hypertension CKD stage IIIb Mild transaminitis most likely secondary to fatty liver infiltration given her body habitus Morbid obesity with a BMI of 42 Leukocytosis secondary to colitis Plan We will start broad-spectrum antibiotics with ciprofloxacin and Flagyl adjusted for renal dysfunction Resume home medications Trend lab data in the a.m. Pain management Supportive measures Fluid resuscitation We will start her on nystatin swish and swallow for her thrush DVT prophylaxis with Lovenox Further recommendations based on the clinical course Justifications for Admission Other Justification REBECA HINSON MD Oct 13, 2021 14:45
[2021-10-13] MEDS: PIPERACILLIN/TAZOBACTAM 2.25 GM in IV NORMAL SALINE 50ML 50 ML IV SCH ×2 (16:17→23:36)
[2021-10-13] MEDS: NYSTATIN 100,000 UNITS/ML 5 ML ORAL.SUSP. SWSW SCH ×2 (16:20→21:25)
--- NOTE | 2021-10-13 16:42 | EKG ---
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
[2021-10-13] MEDS ORDERED: GABA300C18 PO (17:31)
[2021-10-13] MEDS ORDERED: CHOL10004 PO (17:31)
[2021-10-13] MEDS ORDERED: OXYB5TAB10 PO (17:31)
[2021-10-13 19:00] VITALS: BP_SYST 85; BP_SYST 90; BP_DIAS 41; BP_DIAS 43
[2021-10-13] MEDS ORDERED: ASPIRIN ENTERIC COATED 325 MG TABLET.DR. PO SCH (21:00)
[2021-10-13] MEDS ORDERED: CARBIDOPA/LEVODOPA 25/100MG TABLET PO SCH (21:00)
[2021-10-13] MEDS: SENNOSIDES/DOCUSATE 8.6/50MG TABLET. PO SCH (21:00)
[2021-10-13] MEDS: GABAPENTIN 100 MG CAPSULE. PO SCH (21:25)
[2021-10-13] MEDS: NYSTATIN TOPICAL POWDER 15GM BOTTLE. TP SCH (22:16)
[2021-10-13] MEDS: CARBIDOPA/LEVODOPA 25/100MG TABLET PO SCH (22:16)
[2021-10-13 23:10] VITALS: BP 112/53
[2021-10-14 03:15] VITALS: BP 91/43
[2021-10-14 05:41] LABS: BASO % 0 % (0-3); EOS # 0.2 x10^3/uL (0.0-0.7); EOS % 1 % (0-3); HEMATOCRIT 35.3 % (36.0-47.0); HEMOGLOBIN 11.7 g/dL (12.0-15.5); LYMPH # 3.1 x10^3/uL (1.0-4.8); LYMPH % 22 % (24-48); MEAN CORPUSCULAR HEMOGLOBIN 31 pg (25-35); MEAN CORPUSCULAR HGB CONC 33 g/dL (31-37); MEAN CORPUSCULAR VOLUME 93 fL (79-100); MONO % 8 % (0-9); NEUT # 9.6 x10^3/uL (1.8-7.7); NEUT % 69 % (31-73); PLATELET COUNT 73 x10^3/uL (140-400); RED BLOOD COUNT 3.81 x10^6/uL (3.50-5.40); RED CELL DISTRIBUTION WIDTH 13.7 % (11.5-14.5)
[2021-10-14] MEDS: PIPERACILLIN/TAZOBACTAM 2.25 GM in IV NORMAL SALINE 50ML 50 ML IV SCH ×3 (05:55→17:09)
[2021-10-14] MEDS: PANTOPRAZOLE 40 MG TABLET.DR. PO SCH ×2 (05:56→06:06)
[2021-10-14 06:02] LABS: PROTHROMBIN TIME PATIENT 15.2 SEC (11.7-14.0)
[2021-10-14 06:03] LABS: CALCIUM 7.8 mg/dL (8.5-10.1); CREATININE 1.7 mg/dL (0.6-1.0); GFR 29.5; POTASSIUM 3.2 mmol/L (3.5-5.1)
[2021-10-14 07:00] VITALS: BP 112/64
[2021-10-14] MEDS ORDERED: FLU VACC QUAD 21-22 (6MOS+) PF 0.5 ML SYRINGE. VAX IM ONE (08:00)
[2021-10-14] MEDS: NYSTATIN 100,000 UNITS/ML 5 ML ORAL.SUSP. SWSW SCH ×4 (09:00→21:00)
[2021-10-14] MEDS ORDERED: GABAPENTIN 100 MG CAPSULE. PO SCH (09:00)
[2021-10-14] MEDS: SENNOSIDES/DOCUSATE 8.6/50MG TABLET. PO SCH ×2 (09:00→21:00)
[2021-10-14] MEDS: NYSTATIN TOPICAL POWDER 15GM BOTTLE. TP SCH ×2 (09:00→21:23)
[2021-10-14] MEDS: CARBIDOPA/LEVODOPA 25/100MG TABLET PO SCH (09:03)
[2021-10-14] MEDS: CHLORTHALIDONE 25 MG TABLET. PO SCH (09:05)
[2021-10-14] MEDS: LISINOPRIL 20 MG TABLET PO SCH (09:05)
[2021-10-14] MEDS: GABAPENTIN 100 MG CAPSULE. PO SCH ×3 (09:05→21:23)
[2021-10-14] MEDS: MULTIVITAMIN with MINERAL TABLET. PO SCH (09:05)
[2021-10-14] MEDS: POTASSIUM CHLORIDE 20 MEQ TABLET.ER. PO SCH ×3 (10:00→14:01)
[2021-10-14 11:00] VITALS: BP 120/54
[2021-10-14 15:00] VITALS: BP 131/63
--- NOTE | 2021-10-14 17:19 | PDOC ---
PROGRESS NOTES Date of Service: DATE: 10/14/21 TIME: 17:16 Chief Complaint Chief Complaint Assessment/Plan Colitis of the descending colon Oral candidiasis no acute events reported overnight, case discussed with nursing staff patient in no acute distress no complaints during my visit History of Parkinson's disease History of essential hypertension CKD stage IIIb Mild transaminitis most likely secondary to fatty liver infiltration given her body habitus Morbid obesity with a BMI of 42 Leukocytosis secondary to colitis no acute events reported overnight, case discussed with nursing staff patient in no acute distress no complaints during my visit Plan Continue broad-spectrum antibiotics with Zosyn for anaerobic coverage as well given the shortage of Flagyl as per pharmacy Resume home medications If she continues to bleed she may need a GI consultation we will continue to follow closely Pain management Supportive measures Fluid resuscitation We will start her on nystatin swish and swallow for her thrush DVT prophylaxis with Lovenox Further recommendations based on the clinical course History of Present Illness History of Present Illness History of Present Illness Patient is a 71-year-old female with past medical history of Parkinson's disease with no recent changes in her medications was in her usual state of health until the evening prior to her admission when she started noticing bright red blood per rectum. The patient denied any abdominal discomfort at the time she did have some lightheadedness associated with the event. The patient went to bed and this morning had apparently another large bowel movement with regina red blood per rectum. Patient did have some discomfort especially over her lower abdomen that she describes as a pressure sensation 7 out of 10 intensity with no radiation to the groin nor the back no CVA tenderness no urinary symptoms were reported. The patient denies radiation to the groin. She did not self medicate. The patient denies dietary transgressions no travels outside the area no recent antibiotic use no history of sick contacts, at the time my evaluation the patient is laying in bed in no apparent distress. She is quite uncomfortable it seems with her tongue which has thrush she describes some dysphagia that has been present for quite some time. No changes to her medications have been done recently she does not use steroid inhalers she denies headache blurred vision no palpitations no chest pain no shortness of breath no cough or sputum production has been reported. Patient was found to have colitis on CT scan performed in the emergency department reason why we were asked to admit for further treatment. Plan of care has been explained detail all of the patient's concerns were addressed to the best of my abilities 10/14/2021 Patient refers having another bowel movement. When discussed with nursing staff they relate that there was smear of blood mixed with her stool. She is quite concerned about rectal prolapse for which she has had 2 operations in the past. Have discussed this at length with her and also with her sister over the phone. There does not seem to to be active bleeding at the time of my evaluation. Plan of care has been explained in detail. Her odynophagia has improved after nystatin but as per patient's nurse today she is refusing to continue with the swish and swallow therapy plan. We will continue to follow but certainly has improved from yesterday Vitals Vitals Vital Signs Date Time Temp Pulse Resp B/P (MAP) Pulse Ox O2 Delivery O2 Flow Rate FiO2 10/14/21 15:00 98.3 53 16 131/63 (85) 94 Room Air 98.3 Physical Exam General: Alert, Oriented X3, Cooperative, No acute distress Heart: Regular rate, Normal S1, Normal S2, No murmurs Lungs: Clear Abdomen: Normal bowel sounds, Soft, No tenderness Extremities: No clubbing, No cyanosis Skin: No rashes, No breakdown Labs LABS Laboratory Tests Test 10/14/21 04:30 10/14/21 12:40 White Blood Count 14.0 x10^3/uL (4.0-11.0) Red Blood Count 3.81 x10^6/uL (3.50-5.40) Hemoglobin 11.7 g/dL (12.0-15.5) Hematocrit 35.3 % (36.0-47.0) Mean Corpuscular Volume 93 fL (79-100) Mean Corpuscular Hemoglobin 31 pg (25-35) Mean Corpuscular Hemoglobin Concent 33 g/dL (31-37) Red Cell Distribution Width 13.7 % (11.5-14.5) Platelet Count 73 x10^3/uL (140-400) Neutrophils (%) (Auto) 69 % (31-73) Lymphocytes (%) (Auto) 22 % (24-48) Monocytes (%) (Auto) 8 % (0-9) Eosinophils (%) (Auto) 1 % (0-3) Basophils (%) (Auto) 0 % (0-3) Neutrophils # (Auto) 9.6 x10^3/uL (1.8-7.7) Lymphocytes # (Auto) 3.1 x10^3/uL (1.0-4.8) Monocytes # (Auto) 1.0 x10^3/uL (0.0-1.1) Eosinophils # (Auto) 0.2 x10^3/uL (0.0-0.7) Basophils # (Auto) 0.0 x10^3/uL (0.0-0.2) Prothrombin Time 15.2 SEC (11.7-14.0) Prothromb Time International Ratio 1.2 (0.8-1.1) Sodium Level 141 mmol/L (136-145) Potassium Level 3.2 mmol/L (3.5-5.1) Chloride Level 108 mmol/L (98-107) Carbon Dioxide Level 26 mmol/L (21-32) Anion Gap 7 (6-14) Blood Urea Nitrogen 26 mg/dL (7-20) Creatinine 1.7 mg/dL (0.6-1.0) Estimated GFR (Cockcroft-Gault) 29.5 Glucose Level 101 mg/dL (70-99) Calcium Level 7.8 mg/dL (8.5-10.1) Magnesium Level 1.8 mg/dL (1.8-2.4) Review of Systems Review of Systems Review of systems pertinent as per HPI otherwise 14 point review of system is negative Assessment and Plan Assessmemt and Plan Problems Medical Problems: (1) Rectal bleed Status: Acute Comment Review of Relevant I have reviewed the following items radha (where applicable) has been applied. Labs Laboratory Tests Test 10/13/21 09:27 10/13/21 09:36 10/14/21 04:30 10/14/21 12:40 White Blood Count 13.9 x10^3/uL (4.0-11.0) 14.0 x10^3/uL (4.0-11.0) Red Blood Count 4.34 x10^6/uL (3.50-5.40) 3.81 x10^6/uL (3.50-5.40) Hemoglobin 13.5 g/dL (12.0-15.5) 11.7 g/dL (12.0-15.5) Hematocrit 39.9 % (36.0-47.0) 35.3 % (36.0-47.0) Mean Corpuscular Volume 92 fL (79-100) 93 fL (79-100) Mean Corpuscular Hemoglobin 31 pg (25-35) 31 pg (25-35) Mean Corpuscular Hemoglobin Concent 34 g/dL (31-37) 33 g/dL (31-37) Red Cell Distribution Width 13.7 % (11.5-14.5) 13.7 % (11.5-14.5) Platelet Count 98 x10^3/uL (140-400) 73 x10^3/uL (140-400) Neutrophils (%) (Auto) 74 % (31-73) 69 % (31-73) Lymphocytes (%) (Auto) 18 % (24-48) 22 % (24-48) Monocytes (%) (Auto) 7 % (0-9) 8 % (0-9) Eosinophils (%) (Auto) 1 % (0-3) 1 % (0-3) Basophils (%) (Auto) 0 % (0-3) 0 % (0-3) Neutrophils # (Auto) 10.3 x10^3/uL (1.8-7.7) 9.6 x10^3/uL (1.8-7.7) Lymphocytes # (Auto) 2.5 x10^3/uL (1.0-4.8) 3.1 x10^3/uL (1.0-4.8) Monocytes # (Auto) 1.0 x10^3/uL (0.0-1.1) 1.0 x10^3/uL (0.0-1.1) Eosinophils # (Auto) 0.1 x10^3/uL (0.0-0.7) 0.2 x10^3/uL (0.0-0.7) Basophils # (Auto) 0.1 x10^3/uL (0.0-0.2) 0.0 x10^3/uL (0.0-0.2) Prothrombin Time 14.3 SEC (11.7-14.0) 15.2 SEC (11.7-14.0) Prothromb Time International Ratio 1.1 (0.8-1.1) 1.2 (0.8-1.1) Activated Partial Thromboplast Time 29 SEC (24-38) Sodium Level 141 mmol/L (136-145) 141 mmol/L (136-145) Potassium Level 3.6 mmol/L (3.5-5.1) 3.2 mmol/L (3.5-5.1) Chloride Level 105 mmol/L (98-107) 108 mmol/L (98-107) Carbon Dioxide Level 22 mmol/L (21-32) 26 mmol/L (21-32) Anion Gap 14 (6-14) 7 (6-14) Blood Urea Nitrogen 32 mg/dL (7-20) 26 mg/dL (7-20) Creatinine 2.2 mg/dL (0.6-1.0) 1.7 mg/dL (0.6-1.0) Estimated GFR (Cockcroft-Gault) 21.9 29.5 BUN/Creatinine Ratio 15 (6-20) Glucose Level 145 mg/dL (70-99) 101 mg/dL (70-99) Calcium Level 8.6 mg/dL (8.5-10.1) 7.8 mg/dL (8.5-10.1) Total Bilirubin 1.3 mg/dL (0.2-1.0) Aspartate Amino Transf (AST/SGOT) 60 U/L (15-37) Alanine Aminotransferase (ALT/SGPT) 43 U/L (14-59) Alkaline Phosphatase 139 U/L (46-116) Total Protein 7.0 g/dL (6.4-8.2) Albumin 3.1 g/dL (3.4-5.0) Albumin/Globulin Ratio 0.8 (1.0-1.7) Stool Occult Blood Positive (NEG) Magnesium Level 1.8 mg/dL (1.8-2.4) Laboratory Tests Test 10/14/21 04:30 10/14/21 12:40 White Blood Count 14.0 x10^3/uL (4.0-11.0) Red Blood Count 3.81 x10^6/uL (3.50-5.40) Hemoglobin 11.7 g/dL (12.0-15.5) Hematocrit 35.3 % (36.0-47.0) Mean Corpuscular Volume 93 fL (79-100) Mean Corpuscular Hemoglobin 31 pg (25-35) Mean Corpuscular Hemoglobin Concent 33 g/dL (31-37) Red Cell Distribution Width 13.7 % (11.5-14.5) Platelet Count 73 x10^3/uL (140-400) Neutrophils (%) (Auto) 69 % (31-73) Lymphocytes (%) (Auto) 22 % (24-48) Monocytes (%) (Auto) 8 % (0-9) Eosinophils (%) (Auto) 1 % (0-3) Basophils (%) (Auto) 0 % (0-3) Neutrophils # (Auto) 9.6 x10^3/uL (1.8-7.7) Lymphocytes # (Auto) 3.1 x10^3/uL (1.0-4.8) Monocytes # (Auto) 1.0 x10^3/uL (0.0-1.1) Eosinophils # (Auto) 0.2 x10^3/uL (0.0-0.7) Basophils # (Auto) 0.0 x10^3/uL (0.0-0.2) Prothrombin Time 15.2 SEC (11.7-14.0) Prothromb Time International Ratio 1.2 (0.8-1.1) Sodium Level 141 mmol/L (136-145) Potassium Level 3.2 mmol/L (3.5-5.1) Chloride Level 108 mmol/L (98-107) Carbon Dioxide Level 26 mmol/L (21-32) Anion Gap 7 (6-14) Blood Urea Nitrogen 26 mg/dL (7-20) Creatinine 1.7 mg/dL (0.6-1.0) Estimated GFR (Cockcroft-Gault) 29.5 Glucose Level 101 mg/dL (70-99) Calcium Level 7.8 mg/dL (8.5-10.1) Magnesium Level 1.8 mg/dL (1.8-2.4) Medications Current Medications Sodium Chloride 1,000 ml @ 0 mls/hr 1X ONCE IV Last administered on 10/13/21at 09:10; Start 10/13/21 at 09:45; Stop 10/13/21 at 09:46; Status DC Ringer's Solution 1,000 ml @ 100 mls/hr Q10H IV Last administered on 10/13/21at 12:30; Start 10/13/21 at 12:30; Stop 10/13/21 at 22:29; Status DC Ondansetron HCl (Zofran) 4 mg PRN Q6HRS PRN IVP NAUSEA/VOMITING; Start 10/13/21 at 12:30 Calcium Carbonate/ Glycine (Tums) 500 mg PRN Q3HRS PRN PO UPSET STOMACH; Start 10/13/21 at 12:30 Zolpidem Tartrate (Ambien) 5 mg PRN QHS PRN PO INSOMNIA, MAY REPEAT IN 1HR; Start 10/13/21 at 12:30 Info (Non-Icu Electrolyte Protocol) 1 ea PRN DAILY PRN MC SEE COMMENTS; Start 10/13/21 at 12:30 Oxycodone HCl (Roxicodone) 5 mg PRN Q3HRS PRN PO BREAKTHROUGH PAIN; Start 10/13/21 at 12:30 Morphine Sulfate (Morphine Sulfate) 2 mg PRN Q1HR PRN IV SEVERE PAIN; Start 10/13/21 at 12:30 Acetaminophen/ Hydrocodone Bitart (Lortab 5/325) 1 tab PRN Q4HRS PRN PO MODERATE PAIN; Start 10/13/21 at 12:30 Acetaminophen (Tylenol) 650 mg PRN Q6HRS PRN PO Headaches, Temp > 101.5F; Start 10/13/21 at 12:30 Senna/Docusate Sodium (Senna Plus) 1 tab BID PO ; Start 10/13/21 at 21:00 Magnesium Hydroxide (Milk Of Magnesia) 2,400 mg PRN Q12HR PRN PO CONSTIPATION; Start 10/13/21 at 12:30 Lactulose (Lactulose) 20 gm PRN Q12HR PRN PO CONSTIPATION; Start 10/13/21 at 12:30 Aspirin (Ecotrin) 325 mg BID PO ; Start 10/13/21 at 21:00; Status Cancel Carbidopa/Levodopa (Sinemet 25/100) 1 tab TID PO ; Start 10/13/21 at 21:00; Stop 10/13/21 at 19:25; Status DC Chlorthalidone (Thalitone) 12.5 mg DAILY PO Last administered on 10/14/21at 09:05; Start 10/14/21 at 09:00 Acetaminophen/ Hydrocodone Bitart (Lortab 7.5/325) 1 tab PRN Q6HRS PRN PO SEVERE PAIN, 2ND CHOICE; Start 10/13/21 at 14:45 Lisinopril (Prinivil) 20 mg DAILY PO Last administered on 10/14/21at 09:05; Start 10/14/21 at 09:00 Nystatin (Nystop) 1 elzbieta BID TP Last administered on 10/14/21at 09:00; Start 10/13/21 at 21:00 Gabapentin (Neurontin) 100 mg DAILY PO ; Start 10/14/21 at 09:00; Stop 10/13/21 at 19:25; Status DC Multivitamins (Thera M Plus) 1 tab DAILY PO Last administered on 10/14/21at 09:05; Start 10/14/21 at 09:00 Pantoprazole Sodium (Protonix) 40 mg DAILYAC PO ; Start 10/14/21 at 07:30 Ciprofloxacin/ Dextrose 200 ml @ 200 mls/hr Q24H IV ; Start 10/13/21 at 14:45; Status UNV Metronidazole 100 ml @ 100 mls/hr Q8HRS IV ; Start 10/13/21 at 22:00; Status UNV Nystatin (Nystatin Oral Susp) 5 ml [id number] Last administered on 10/13/21at 21:25; Start 10/13/21 at 17:00 Piperacillin Sod/ Tazobactam Sod 2.25 gm/Sodium Chloride 50 ml @ 100 mls/hr Q6HRS IV Last administered on 10/14/21at 17:09; Start 10/13/21 at 15:00 Influenza Virus Vaccine Quadrival (Flulaval Quad [id number] Syringe) 0.5 ml ONCE ONCE VAX IM ; Start 10/14/21 at 08:00; Stop 10/14/21 at 08:01; Status DC Carbidopa/Levodopa (Sinemet 25/100) 1 tab DAILY PO Last administered on 10/14/21at 09:03; Start 10/13/21 at 22:00 Gabapentin (Neurontin) 300 mg TID PO Last administered on 10/14/21at 14:01; Start 10/13/21 at 21:00 Potassium Chloride (Klor-Con) 40 meq Q2H PO Last administered on 10/14/21at 14:01; Start 10/14/21 at 10:00; Stop 10/14/21 at 12:05; Status DC Lactobacillus Rhamnosus (Culturelle) 1 cap BID PO ; Start 10/14/21 at 21:00 Active Scripts Active Reported Oxybutynin Chloride 5 Mg Tablet 1 Tab PO BID Vitamin D3 (Vitamin D) 25 Mcg Tablet 25 Mcg PO DAILY 1,000 UNITS = 25 MCG Gabapentin (Gabapentin) 300 Mg Capsule 300 Mg PO TID Nystatin 15 Gm Powder 1 Elzbieta TP BID 7 Days apply to affected area(s) Omeprazole 20 Mg Tablet.dr 20 Mg PO DAILY Lisinopril 20 Mg Tablet 20 Mg PO DAILY Chlorthalidone (Chlorthalidone) 25 Mg Tablet 12.5 Mg PO DAILY Carbidopa-Levodopa 25-100 Tab (Carbidopa/Levodopa) 1 Each Tablet 1 Each PO DAILY Hydrocodone-Apap 7.5-325 (Hydrocodone Bit/Acetaminophen) 1 Tab Tablet 1 Tab PO PRN Q6HRS PRN Vitals/I & O Vital Sign - Last 24 Hours 10/13/21 10/13/21 10/13/21 10/13/21 19:00 19:00 20:00 23:10 Temp 98.8 98.4 98.8 98.4 Pulse 60 62 60 Resp 18 19 B/P (MAP) 85/41 (56) 90/43 (59) 112/53 (72) Pulse Ox 91 90 O2 Delivery Room Air Room Air Room Air 10/14/21 10/14/21 10/14/21 10/14/21 03:15 07:00 08:00 09:05 Temp 99.2 98.1 99.2 98.1 Pulse 60 59 59 Resp 18 16 B/P (MAP) 91/43 (59) 112/64 (80) 112/64 Pulse Ox 94 93 O2 Delivery Room Air Room Air Room Air 10/14/21 10/14/21 11:00 15:00 Temp 98.4 98.3 98.4 98.3 Pulse 48 53 Resp 16 16 B/P (MAP) 120/54 (76) 131/63 (85) Pulse Ox 94 94 O2 Delivery Room Air Room Air Intake and Output 10/13/21 10/13/21 10/14/21 15:00 23:00 07:00 Intake Total 1000 ml 50 ml Output Total 0 ml Balance 1000 ml 50 ml 0 ml Justicifation of Admission Dx: Justifications for Admission: Justification of Admission Dx: Yes REBECA HINSON MD Oct 14, 2021 17:19
[2021-10-14 19:00] VITALS: BP 117/55
[2021-10-14] MEDS: LACTOBACILLUS RHAMNOSUS GG 1 CAPSULE. PO SCH (21:22)
[2021-10-14 23:41] VITALS: BP 111/59
[2021-10-15] MEDS: PIPERACILLIN/TAZOBACTAM 2.25 GM in IV NORMAL SALINE 50ML 50 ML IV SCH ×3 (00:06→12:00)
[2021-10-15 03:47] VITALS: BP 114/58
[2021-10-15] MEDS: PANTOPRAZOLE 40 MG TABLET.DR. PO SCH (05:52)
[2021-10-15 07:00] VITALS: BP 98/55
[2021-10-15 08:11] LABS: BASO % 1 % (0-3); EOS # 0.2 x10^3/uL (0.0-0.7); EOS % 3 % (0-3); HEMATOCRIT 40.5 % (36.0-47.0); HEMOGLOBIN 13.5 g/dL (12.0-15.5); LYMPH # 2.2 x10^3/uL (1.0-4.8); LYMPH % 27 % (24-48); MEAN CORPUSCULAR HEMOGLOBIN 31 pg (25-35); MEAN CORPUSCULAR HGB CONC 33 g/dL (31-37); MEAN CORPUSCULAR VOLUME 93 fL (79-100); MONO # 0.6 x10^3/uL (0.0-1.1); MONO % 8 % (0-9); NEUT # 5.1 x10^3/uL (1.8-7.7); NEUT % 62 % (31-73); PLATELET COUNT 99 x10^3/uL (140-400); RED BLOOD COUNT 4.35 x10^6/uL (3.50-5.40); RED CELL DISTRIBUTION WIDTH 13.9 % (11.5-14.5); WHITE BLOOD COUNT 8.2 x10^3/uL (4.0-11.0)
[2021-10-15 08:28] LABS: CALCIUM 8.4 mg/dL (8.5-10.1); CREATININE 1.3 mg/dL (0.6-1.0); GFR 40.3; POTASSIUM 4.2 mmol/L (3.5-5.1)
[2021-10-15] MEDS: CARBIDOPA/LEVODOPA 25/100MG TABLET PO SCH (08:53)
[2021-10-15] MEDS: CHLORTHALIDONE 25 MG TABLET. PO SCH (08:54)
[2021-10-15] MEDS: SENNOSIDES/DOCUSATE 8.6/50MG TABLET. PO SCH (08:54)
[2021-10-15] MEDS: NYSTATIN 100,000 UNITS/ML 5 ML ORAL.SUSP. SWSW SCH (08:54)
[2021-10-15] MEDS: LACTOBACILLUS RHAMNOSUS GG 1 CAPSULE. PO SCH (08:55)
[2021-10-15] MEDS: MULTIVITAMIN with MINERAL TABLET. PO SCH (08:55)
[2021-10-15] MEDS: LISINOPRIL 20 MG TABLET PO SCH (09:00)
[2021-10-15] MEDS: GABAPENTIN 100 MG CAPSULE. PO SCH (09:08)
[2021-10-15] MEDS: NYSTATIN TOPICAL POWDER 15GM BOTTLE. TP SCH (09:09)
[2021-10-15 11:00] VITALS: BP 132/66
--- NOTE | 2021-10-15 12:10 | NUR ---
JERMAINE following. Discussed with RN, pt from home with sister, room air, cardiac diet. Pt wanting to go home today. RN advised no SW needs at this time. JEMRAINE will continue to follow. Addendum: 10/15/21 at 1516 by RHIANNA DEAN Discharge order for home with home health. Pt had already left by the time JERMAINE went to speak with pt. Dixie Jimenez RN notified and will reach out to patient and family.
--- NOTE | 2021-10-15 12:50 | SNU/HH DC ---
DISCHARGE WITH HOME HEALTH DISCHARGE INFORMATION: Final Diagnosis: Problems Medical Problems: (1) Rectal bleed Status: Acute Condition on Discharge: Stable CODE STATUS: Code Status: Full HOME HEALTH: Face to Face: I certify this patient is under my care and that I, or a nurse practitioner or physician's assistant professor of drama working with me, had a face to face encounter that meets the physician face to face encounter requirements with this patient on []. Medical Complications: Other (Recent rectal bleeding) Nursing Home For: Assess Cardiopulm Status RN For Eval/Treatment: Yes Physical Therapy For: Evalulation/Treatment Occupational Therapy For: Evaluation/Treatment Home Health Aide For: Self-care [employer] For: Community Resources Pt Meets Homebound Status: Poor coordination w/ amb. POST DISCHARGE ORDERS: DIET AFTER DISCHARGE: Cardiac CERTIFICATION STATEMENT: Certification Statement: Certification Statement: Based on the above finding, I certify that this patient is confined to the home and needs intermittent senior care care, physical therapy and/or speech therapy, or continues to need occupational therapy.~ This patient is under my care, and I have initiated the establishment of the plan of care.~ This patient will be followed by myself or a community physician who will periodically review the plan of care. Home Meds Reported Medications Oxybutynin Chloride (OXYBUTYNIN CHLORIDE) 5 Mg Tablet, 1 TAB PO BID for overactive bladder, #60 TAB 11 Refills 10/13/21 Cholecalciferol (Vitamin D3) (Vitamin D3 ) 25 Mcg Tablet, 25 MCG PO DAILY for SUPPLEMENT, TAB 1,000 UNITS = 25 MCG 10/13/21 Gabapentin (GABAPENTIN ) 300 Mg Capsule, 300 MG PO TID for NEUROGENIC PAIN, CAP 10/13/21 Nystatin (NYSTATIN) 15 Gm Powder, 1 EMILY TP BID for rash groin for 7 Days, #1 BOTTLE 0 Refills apply to affected area(s) 03/21/21 Omeprazole (OMEPRAZOLE) 20 Mg Tablet.dr, 20 MG PO DAILY for CONTROL GERD, TAB 02/26/21 Lisinopril (LISINOPRIL) 20 Mg Tablet, 20 MG PO DAILY for FOR HYPERTENSION, #30 TAB 0 Refills 02/26/21 Chlorthalidone (CHLORTHALIDONE ) 25 Mg Tablet, 12.5 MG PO DAILY for DIURETIC, TAB 02/26/21 Carbidopa/Levodopa (CARBIDOPA-LEVODOPA 25-100 TAB) 1 Each Tablet, 1 EACH PO TRU LY for PARKINSONS TREMORS, TAB 02/26/21 Hydrocodone Bit/Acetaminophen (HYDROCODONE-APAP 7.5-325 ) 1 Tab Tablet, 1 TAB PO PRN Q6HRS PRN for PAIN, TAB 0 Refills 02/26/21 FRANCISCA LABOY III DO Oct 15, 2021 12:50
--- NOTE | 2021-10-15 13:27 | NUR ---
Discharge Note: CHELY QUINONES J[facility] Discharge instructions and discharge home medications reviewed with Patient and a copy given. All questions have been answered and understanding verbalized. The following instructions and handouts were given: follow up instructions. Discontinued lines and drains: 20 gauge left FA, tip intact. patient tolerated well. Patient discharged to home with self care via sister.
--- NOTE | 2021-10-15 18:16 | DS ---
DATE OF DISCHARGE: 10/15/2021 ADMITTING DIAGNOSIS: Rectal bleeding. DISCHARGE DIAGNOSES: Resolving rectal bleeding, suspect hemorrhoids, history of cholecystectomy, carpal tunnel surgery and Parkinson's. CONSULTS: None. PROCEDURES: None. HOSPITAL COURSE: The patient is a pleasant elderly female who presented with some subjective bright red blood per rectum. We admitted her and trended her hemoglobin. Her hemoglobin has gone from 13.5 down to 11.7, but now back up to 13.5. Today, I saw and examined her. She is doing well and wants to go home. We plan to discharge with close outpatient followup. DISPOSITION: Home. ACTIVITY: As tolerated. DIET: Low sodium. DISCHARGE MEDICATIONS: Please see the MRAD. OTHER MEDICATIONS: We put her on Sinemet 25/100 one p.o. daily, vitamin D, gabapentin 300 t.i.d., p.r.n. hydrocodone, lisinopril 20 a day, nystatin powder, Prilosec 20 a day and oxybutynin 5 b.i.d. TOTAL TIME: [address]: ROSHAN/theresa TID: [id number]
== END 2021-10-15 13:36 | disposition home health service (06) ==
LOC: ER 09:19 → INTOOBSV 11:42 → 5 SOUTH 11:42
PROVIDERS: ADMIT Internal Medicine; ATTEND Internal Medicine
DX: K52.9 Noninfective gastroenteritis and colitis, unspecified (principal); B37.0 Candidal stomatitis; G20 Parkinson's disease; I12.9 Hypertensive chronic kidney disease with stage 1 through stage 4 chronic kidney disease, or unspecified chronic kidney disease; N18.32 Chronic kidney disease, stage 3b; D72.829 Elevated white blood cell count, unspecified; E66.01 Morbid (severe) obesity due to excess calories; K76.0 Fatty (change of) liver, not elsewhere classified; M81.0 Age-related osteoporosis without current pathological fracture; N32.81 Overactive bladder; R13.10 Dysphagia, unspecified; Z23 Encounter for immunization; Z68.41 Body mass index [BMI] 40.0-44.9, adult; Z90.49 Acquired absence of other specified parts of digestive tract; Z96.659 Presence of unspecified artificial knee joint; Z71.85 Encounter for immunization safety counseling
CPT/HCPCS: 36415; 71045; 74176; 80048; 80053; 82274; 83735; 85025; 85610; 85730; 86850; 86900; 86901; 90471; 90686; 93005; 96361; 96365; 96366; 99285; J2543; J7030; J7120; 96360; G0378; G0379